=== PATIENT | male | born 1945 | race Caucasian/White ===

== ENCOUNTER 2018-01-02 09:22 | Outpatient (CLI) | payer MEDICARE, BC, OTHER ==
[2018-01-04] MEDS ORDERED: ALBUTEROL NEB 2.5 MG/3 ML INH PRN (16:18)
== END 2018-01-02 09:23 | disposition home or self-care (01) ==
LOC: RT 09:22
PROVIDERS: ATTEND Family Medicine
DX: J44.9 Chronic obstructive pulmonary disease, unspecified (principal)
CPT/HCPCS: 94060; 94729

== ENCOUNTER 2018-10-04 11:22 | Outpatient (CLI) | payer MEDICARE, BC, OTHER ==
[2018-10-04] MEDS ORDERED: BUFFERED LIDOCAINE 10 ML SYRINGE ONE (12:02)
[2018-10-04] MEDS ORDERED: IOTHALAMATE MEGLUMINE 50 ML VIAL ONE (12:19)
[2018-10-04] MEDS ORDERED: BUFFERED LIDOCAINE 10 ML SYRINGE IU ONE (12:44)
[2018-10-04] MEDS ORDERED: BUPIVACAINE 0.5% PF 10 ML VIAL IM ONE (12:44)
[2018-10-04] MEDS ORDERED: IOTHALAMATE MEGLUMINE 50 ML VIAL IVP ONE (12:44)
[2018-10-04] MEDS ORDERED: methylPREDNISolone ACETATE 80 MG/ML VIAL IU ONE (12:44)
--- NOTE | 2018-10-24 13:00 | XRAY Report ---
Reason: DEGENERATIVE JOINT DISEASE OF LEFT SHOULDER Procedure Date: 10/04/2018 Accession Number: [id number] / [id number] Procedure: FL - Inj/Aspiration Major Joint CPT Code: FULL RESULT: EXAM: LEFT SHOULDER FLUOROSCOPIC INJECTION FOR PAIN EXAM DATE: 10/04/2018 12:37 PM. REFERRING PROVIDER: CLINICAL HISTORY: Degenerative joint disease of left shoulder. COMPARISON: None. TECHNIQUE: The risks, benefits and alternatives of this examination were discussed in detail with the patient. Risks of bleeding, infection, and increasing discomfort in the left shoulder were included in the discussion. The patient appeared to understand, and signed, dated, and timed an informed consent document. The skin was prepped with chlorhexidine gluconate and draped in the usual sterile manner, and 4 mL of 1% buffered lidocaine was used for local analgesia. Under fluoroscopic control, a 22-gauge needle was placed into the left shoulder joint capsule. After achieving low resistance to the injection of lidocaine, 4 mL of Conray 60 radiographic contrast was injected and a fluoroscopic spot image was captured to document intra-articular location. Then a combination of 10 mL of bupivacaine and 80 mg of Depo-Medrol was injected without difficulty. The needle was removed, and the patient was released. The patient was instructed in the potential signs and symptoms for infection or septic arthritis. The patient was asked to call the referring physician or go to the emergency room if these signs and symptoms should appear. Fluoroscopy Time: 45 seconds. Number of Images: 1 IMPRESSION: Successful injection of left shoulder for pain relief as noted above. RADIA
== END 2018-10-04 11:23 | disposition home or self-care (01) ==
LOC: DI 11:22
PROVIDERS: ATTEND Orthopaedic Surgery Sports Medicine
DX: M19.012 Primary osteoarthritis, left shoulder (principal)
CPT/HCPCS: 20610; Q9961

== ENCOUNTER 2018-10-18 13:21 | Outpatient (CLI) | payer MEDICARE, BC, OTHER ==
[2018-10-18] MEDS ORDERED: IOTHALAMATE MEGLUMINE 50 ML VIAL ONE (13:30)
[2018-10-18] MEDS ORDERED: BUFFERED LIDOCAINE 10 ML SYRINGE ONE (13:30)
[2018-10-18] MEDS ORDERED: TRIAMCINOLONE 40 MG/ML VIAL IM ONE (14:40)
[2018-10-18] MEDS ORDERED: ROPIVACAINE 0.5% PF 20 ML AMPULE EPI ONE (14:40)
[2018-10-18] MEDS ORDERED: IOTHALAMATE MEGLUMINE 50 ML VIAL IVP ONE (14:40)
[2018-10-18] MEDS ORDERED: BUFFERED LIDOCAINE 10 ML SYRINGE IU ONE (14:52)
--- NOTE | 2018-10-28 08:33 | XRAY Report ---
Reason: DJD OF RIGHT SHOULDER Procedure Date: 10/18/2018 Accession Number: [id number] / [id number] Procedure: FL - Inj/Aspiration Major Joint CPT Code: FULL RESULT: EXAM: RIGHT SHOULDER STEROID INJECTION WITH FLUOROSCOPIC GUIDANCE EXAM DATE: 10/18/2018 01:40 PM. CLINICAL HISTORY: DJD of right shoulder. Shoulder pain. COMPARISON: GENERAL 10/04/2018 10:43 AM. TECHNIQUE: The risks, benefits, and alternatives of the procedure were discussed with the patient. All questions were answered. Written and verbal consent were obtained. The glenohumeral joint was marked under fluoroscopy and prepped and draped in a sterile manner. Local anesthesia was performed with 1% lidocaine. A 22-gauge needle was then inserted into the glenohumeral joint. 5 mL of a solution containing 0.5% ropivacaine, 10 mg Kenalog, and iodinated contrast was then injected. The needle was removed without immediate complication. Other: None. Fluoroscopy Time: 5 seconds. Number of Images: 4. FINDINGS: Bones and joints: No fracture or subluxation. Injection: Fluoroscopic images demonstrate needle placement and contrast in the glenohumeral joint. No contrast extravasation outside of the glenohumeral joint. IMPRESSION: Successful fluoroscopically guided steroid injection of the shoulder. RADIA
== END 2018-10-18 13:22 | disposition home or self-care (01) ==
LOC: DI 13:21
PROVIDERS: ATTEND Orthopaedic Surgery Sports Medicine
DX: M19.011 Primary osteoarthritis, right shoulder (principal)
CPT/HCPCS: 20610; Q9961

== ENCOUNTER 2018-11-11 08:00 | Outpatient (CLI) | payer MEDICARE, BC, OTHER ==
[2018-11-11 18:50] LABS: BASOPHILS # (AUTO) 0.1 10^3/uL (0.0-0.1); BASOPHILS % (AUTO) 0.9 %; EOSINOPHILS # (AUTO) 0.1 10^3/uL (0.0-0.7); EOSINOPHILS % (AUTO) 1.2 %; HGB - HEMOGLOBIN 14.1 g/dL (14.0-18.0); LYMPHOCYTES # (AUTO) 1.4 10^3/uL (1.5-3.5); LYMPHOCYTES % (AUTO) 23.7 %; MEAN CORPUSCULAR HEMOGLOBIN 30.3 pg (27.0-31.0); MEAN CORPUSCULAR HGB CONC 33.3 g/dL (32.0-36.0); MEAN CORPUSCULAR VOLUME 91.1 fL (80.0-94.0); MEAN PLATELET VOLUME 8.8 fL (7.4-11.4); MONOCYTES # (AUTO) 0.6 10^3/uL (0.0-1.0); MONOCYTES % (AUTO) 9.6 %; NEUTROPHILS # (AUTO) 3.8 10^3/uL (1.5-6.6); NEUTROPHILS % (AUTO) 64.6 %; PLT - PLATELET COUNT 256 10^3/uL (130-450); RED BLOOD COUNT 4.64 10^6/uL (4.70-6.10); RED CELL DISTRIBUTION WIDTH 13.9 % (12.0-15.0); WHITE BLOOD COUNT 5.9 x10^3/uL (4.8-10.8)
[2018-11-11 19:03] LABS: ALBUMIN 3.9 g/dL (3.2-5.5); ALBUMIN/GLOBULIN RATIO 1.4 (1.0-2.2); ALKALINE PHOSPHATASE 100 IU/L (42-121); ALT ALANINE AMINOTRANSFERASE 24 IU/L (10-60); AST ASPARTATE AMINOTRANSFERASE 26 IU/L (10-42); BILIRUBIN,TOTAL 0.7 mg/dL (0.2-1.0); BUN - BLOOD UREA NITROGEN 13 mg/dL (6-20); CALCIUM 9.1 mg/dL (8.5-10.3); CARBON DIOXIDE - CO2 27 mmol/L (21-32); CHLORIDE 105 mmol/L (101-111); CHOL/HDL RATIO 4.5 (<5.0); CHOLESTEROL 206 mg/dL; CREATININE 0.9 mg/dL (0.6-1.2); GFR - MDRD 83 (>89); GLUCOSE 113 mg/dL (70-100); HDL CHOLESTEROL 46 mg/dL; LDL CHOLESTEROL,CALCULATED 138 mg/dL; SODIUM 138 mmol/L (135-145); TOTAL PROTEIN 6.7 g/dL (6.7-8.2); VLDL CHOLESTEROL 22 mg/dL
[2018-11-11 19:15] LABS: HB2 TOTAL 15.5 g/dL; HEMOGLOBIN A1C 0.59 g/dL; HEMOGLOBIN A1C % 5.6 % (4.6-6.2)
== END 2018-11-11 23:59 | disposition home or self-care (01) ==
LOC: LAB.WCP 08:00
PROVIDERS: ATTEND Family Medicine
DX: R73.01 Impaired fasting glucose (principal); E78.5 Hyperlipidemia, unspecified; Z12.5 Encounter for screening for malignant neoplasm of prostate; R03.0 Elevated blood-pressure reading, without diagnosis of hypertension
CPT/HCPCS: 36415; 80053; 80061; 83036; 85025; G0103; 83721; 84153

== ENCOUNTER 2018-11-14 16:13 | Outpatient (CLI) | payer MEDICARE, BC, OTHER ==
--- NOTE | 2018-11-15 10:03 | Ultrasound Report ---
Reason: NICOTINE ADDICTION,IN REMISSION Procedure Date: 11/14/2018 Accession Number: [id number] / [id number] Procedure: US - Aorta Screening CPT Code: FULL RESULT: EXAM: AORTIC DOPPLER ULTRASOUND EXAM DATE: 11/14/2018 04:24 PM. CLINICAL HISTORY: Nicotine addiction, in remissioN. COMPARISON: None. TECHNIQUE: Real-time sonographic imaging of retroperitoneal vascular structures, including color-flow, Doppler flow and spectral analysis was performed by the practice performance manager. Multiple printing supplies sales representative static images were saved for review. FINDINGS: Aorta: The abdominal aorta was adequately visualized. No evidence for abdominal aortic aneurysm. Atheromatous plaques are noted. Aorta: Proxima: Sagittal AP 2.9 cm. Mid: Transverse 2.4 x 2.3 cm. Distal: Transverse 2.1 x 2.0 cm. Caliber: WNL: Yes. Plaque visualized: Yes. Iliacs: Right Iliac: Transverse 1.3 x 1.2 cm. Left Iliac: Transverse 1.3 x 1.2 cm. Iliac Vessels: The visualized proximal common iliac arteries are normal in caliber. Ectatic right iliac artery. Other: None. IMPRESSION: No abdominal aortic aneurysm. RADIA
== END 2018-11-14 16:14 | disposition home or self-care (01) ==
LOC: DI 16:13
PROVIDERS: ATTEND Family Medicine
DX: F17.201 Nicotine dependence, unspecified, in remission (principal); I70.0 Atherosclerosis of aorta
CPT/HCPCS: 76706

== ENCOUNTER 2019-02-25 13:22 | Outpatient (CLI) | payer MEDICARE, BC, OTHER ==
--- NOTE | 2019-02-25 14:29 | Ultrasound Report ---
Reason: CALF PAIN, LEFT Procedure Date: 02/25/2019 Accession Number: [id number] / [id number] Procedure: US - Duplex Ext Veins Left CPT Code: FULL RESULT: EXAM: LEFT LOWER EXTREMITY VENOUS ULTRASOUND EXAM DATE: 02/25/2019 02:22 PM. CLINICAL HISTORY: CALF PAIN, LEFT. COMPARISON: None. TECHNIQUE: Real-time sonographic vascular imaging was performed by the laundry assistant through the lower extremity utilizing both color-flow and Doppler spectral analysis. Multiple title insurance sales representative static images were saved for review. FINDINGS: Common Femoral Vein (CFV): Normal. CFV-GSV Junction: Normal. Profunda Femoral Vein (PFV): Normal. Femoral Vein (FV) Prox: Normal. Femoral Vein (FV) Mid: Normal. Femoral Vein (FV) Dist: Normal. Popliteal Vein: Normal. Posterior Tibial Veins: Normal. Peroneal Veins: Normal. Contralateral Side CFV: Normal. Other: None. IMPRESSION: No evidence for deep venous thrombosis. RADIA
== END 2019-02-25 13:23 | disposition home or self-care (01) ==
LOC: DI 13:22
PROVIDERS: ATTEND Orthopaedic Surgery Sports Medicine
DX: M79.662 Pain in left lower leg (principal)

== ENCOUNTER 2019-03-06 12:51 | Outpatient (CLI) | payer MEDICARE, BC, OTHER ==
[2019-03-06] MEDS ORDERED: BUFFERED LIDOCAINE 10 ML SYRINGE ONE (13:03)
[2019-03-06] MEDS ORDERED: IOTHALAMATE MEGLUMINE 50 ML VIAL ONE (13:04)
[2019-03-06] MEDS ORDERED: BUFFERED LIDOCAINE 10 ML SYRINGE IU ONE (14:16)
[2019-03-06] MEDS ORDERED: IOTHALAMATE MEGLUMINE 50 ML VIAL IVP ONE (14:16)
[2019-03-06] MEDS ORDERED: TRIAMCINOLONE 40 MG/ML VIAL IM ONE (14:16)
[2019-03-06] MEDS ORDERED: ROPIVACAINE 0.5% PF 20 ML VIAL SUBQ SCH (15:00)
--- NOTE | 2019-03-07 13:12 | XRAY Report ---
Reason: DEGENERATIVE JOINT DISEASE OF LT SHOULDER Procedure Date: 03/06/2019 Accession Number: [id number] / [id number] Procedure: FL - Inj/Aspiration Major Joint CPT Code: FULL RESULT: EXAM: LEFT SHOULDER STEROID INJECTION WITH FLUOROSCOPIC GUIDANCE EXAM DATE: 03/06/2019 02:05 PM. CLINICAL HISTORY: DEGENERATIVE JOINT DISEASE OF LEFT SHOULDER. COMPARISON: INJ/ASPIRATION MAJOR JOINT 10/18/2018 2:16 PM. TECHNIQUE: The risks, benefits, and alternatives of the procedure were discussed with the patient. All questions were answered. Written and verbal consent were obtained. The glenohumeral joint was marked under fluoroscopy and prepped and draped in a sterile manner. Local anesthesia was performed with 1% lidocaine. A 22-gauge needle was then inserted into the glenohumeral joint. 5 mL of a solution of 4 mL 0.5% ropivacaine and 1 mL Kenalog 40 mg was then injected. The needle was removed without immediate complication. Other: None. Fluoroscopy Time: 0.2 minutes. Number of Images: 13. FINDINGS: Bones and joints: No fracture or subluxation. Injection: Fluoroscopic images demonstrate needle placement and contrast in the glenohumeral joint. No contrast extravasation outside of the glenohumeral joint. IMPRESSION: Successful fluoroscopically guided steroid injection of the shoulder. RADIA
== END 2019-03-06 12:52 | disposition home or self-care (01) ==
LOC: DI 12:51
PROVIDERS: ATTEND Orthopaedic Surgery Sports Medicine
DX: M19.012 Primary osteoarthritis, left shoulder (principal)
CPT/HCPCS: 20610; Q9961

== ENCOUNTER 2019-07-10 15:00 | Outpatient (CLI) | payer MEDICARE, BC, OTHER ==
--- NOTE | 2019-07-11 11:17 | XRAY Report ---
Reason: COPD, COUGH Procedure Date: 07/10/2019 Accession Number: [id number] / [id number] Procedure: WCP - Chest 2 View X-Ray CPT Code: 06695 Final Report FULL RESULT: EXAM: CHEST RADIOGRAPHY EXAM DATE: 07/10/2019 03:00 PM HISTORY: COPD, COUGH COMPARISON: CHEST 2 VIEW PA/LAT 05/18/2016 3:48 PM TECHNIQUE: Two Views FINDINGS: Lungs/Pleura: No consolidation, edema or pleural effusion. Mildly hyperexpanded suggesting pulmonary emphysema. Cardiomediastinal silhouette: Normal heart size. There is deviation of the trachea toward the right side just below the thoracic inlet level. This is new. Follow-up with chest CT is recommended to better assess for solid tumor lesion. Other: Diffuse moderate spondylosis noted in the thoracic spine. Bilateral degenerative arthritis seen at the shoulders. IMPRESSION: No soft tissue prominence and tracheal deviation at the upper mediastinum concerning for soft tissue mass lesion. Follow-up with chest CT is recommended. Continued suggestion of pulmonary emphysema. No focal pulmonary abnormality. RADIA
== END 2019-07-10 23:59 | disposition home or self-care (01) ==
LOC: DI.WCP 15:00
PROVIDERS: ATTEND Family Medicine
DX: J44.9 Chronic obstructive pulmonary disease, unspecified (principal)
CPT/HCPCS: 71046

== ENCOUNTER 2019-07-24 13:19 | Outpatient (CLI) | payer MEDICARE, BC, OTHER ==
--- NOTE | 2019-07-24 15:48 | CT Report ---
Reason: ABN CHEST XRAY Procedure Date: 07/24/2019 Accession Number: [id number] / [id number] Procedure: CT - CHEST WO CPT Code: Final Report FULL RESULT: EXAM: CT CHEST EXAM DATE: 07/24/2019 01:53 PM. CLINICAL HISTORY: Abnormal chest x-ray. COMPARISONS: CHEST W/O 07/14/2014 8:32 AM CHEST 2 VIEW 07/10/2019 2:33 PM. TECHNIQUE: Routine helical CT imaging was performed through the chest. IV contrast: None. Reconstructions: Coronal and sagittal. In accordance with CT protocol optimization, one or more of the following dose reduction techniques were utilized for this exam: automated exposure control, adjustment of mA and/or KV based on patient size, or use of iterative reconstructive technique. FINDINGS: Lungs/Pleura: There has been interval progression in previously subtle right middle and upper lobe and lingula bronchiectasis with surrounding central peribronchovascular groundglass and interstitial thickening with scant patchy consolidation in the right middle lobe suggestive of ongoing active airspace disease, likely with a chronic component. No significant corresponding active airspace disease is seen in the lingula. Remaining lung is essentially normal aside from subsegmental atelectasis at both lung bases and a 3 mm nodule in the lingula as seen on image 201 series 4. There is no pleural effusion or pneumothorax. Mediastinum: Moderate to severe calcifications of the left coronary system. No pericardial effusion. No mediastinal lymphadenopathy by size criteria. Mild to moderate calcifications of the aortic arch. Bones: Unremarkable. Visualized Abdomen: Left renal cyst. Other: None. IMPRESSION: Chronic changes including bronchiectasis and right middle and upper lobe as well as to a lesser degree in the lingula with apparent acute airspace disease in the right middle lobe and lingula. RADIA
== END 2019-07-24 13:20 | disposition home or self-care (01) ==
LOC: DI 13:19
PROVIDERS: ATTEND Family Medicine
DX: J47.9 Bronchiectasis, uncomplicated (principal); J98.11 Atelectasis; R91.8 Other nonspecific abnormal finding of lung field
CPT/HCPCS: 71250

== ENCOUNTER 2019-11-19 09:32 | Outpatient (CLI) | payer MEDICARE, BC, OTHER ==
[2019-11-19 13:43] LABS: BASOPHILS % (AUTO) 0.7 %; EOSINOPHILS # (AUTO) 0.1 10^3/uL (0.0-0.7); EOSINOPHILS % (AUTO) 1.7 %; HGB - HEMOGLOBIN 14.4 g/dL (14.0-18.0); LYMPHOCYTES # (AUTO) 1.6 10^3/uL (1.5-3.5); LYMPHOCYTES % (AUTO) 27.2 %; MEAN CORPUSCULAR HEMOGLOBIN 30.1 pg (27.0-31.0); MEAN CORPUSCULAR VOLUME 91.4 fL (80.0-94.0); MONOCYTES # (AUTO) 0.5 10^3/uL (0.0-1.0); MONOCYTES % (AUTO) 9.2 %; NEUTROPHILS # (AUTO) 3.5 10^3/uL (1.5-6.6); NEUTROPHILS % (AUTO) 60.9 %; PLT - PLATELET COUNT 232 10^3/uL (130-450); RED BLOOD COUNT 4.78 10^6/uL (4.70-6.10); RED CELL DISTRIBUTION WIDTH 12.9 % (12.0-15.0); WHITE BLOOD COUNT 5.7 x10^3/uL (4.8-10.8)
[2019-11-19 14:07] LABS: ALBUMIN 3.9 g/dL (3.2-5.5); ALBUMIN/GLOBULIN RATIO 1.3 (1.0-2.2); ALKALINE PHOSPHATASE 94 IU/L (42-121); ALT ALANINE AMINOTRANSFERASE 16 IU/L (10-60); AST ASPARTATE AMINOTRANSFERASE 19 IU/L (10-42); BUN - BLOOD UREA NITROGEN 17 mg/dL (6-20); CALCIUM 8.8 mg/dL (8.5-10.3); CARBON DIOXIDE - CO2 28 mmol/L (21-32); CHLORIDE 106 mmol/L (101-111); CHOL/HDL RATIO 4.9 (<5.0); CHOLESTEROL 201 mg/dL; GLUCOSE 107 mg/dL (70-100); HDL CHOLESTEROL 41 mg/dL; LDL CHOLESTEROL,CALCULATED 136 mg/dL; LDL/HDL RATIO 3.3 (<3.6); SODIUM 138 mmol/L (135-145); TOTAL PROTEIN 6.8 g/dL (6.7-8.2); VLDL CHOLESTEROL 24 mg/dL
[2019-11-19 14:25] LABS: HB2 TOTAL 14.7 g/dL; HEMOGLOBIN A1C 0.55 g/dL; HEMOGLOBIN A1C % 5.6 % (4.6-6.2)
== END 2019-11-19 23:59 | disposition home or self-care (01) ==
LOC: LAB.WCP 09:32
PROVIDERS: ATTEND Family Medicine
DX: R73.9 Hyperglycemia, unspecified (principal); E78.5 Hyperlipidemia, unspecified; R03.0 Elevated blood-pressure reading, without diagnosis of hypertension
CPT/HCPCS: 36415; 80053; 80061; 83036; 83721; 84443; 85025

== ENCOUNTER 2019-11-26 13:59 | Outpatient (CLI) | payer MEDICARE, BC, OTHER | END 2019-11-26 23:59 | disposition home or self-care (01) | LOC: LAB.WCP 13:59 | PROVIDERS: ATTEND Family Medicine | DX: R97.20 Elevated prostate specific antigen [PSA] (principal) | CPT/HCPCS: 36415; 84153 ==

== ENCOUNTER 2020-01-29 10:05 | Outpatient (CLI) | payer MEDICARE, BC, OTHER ==
[~2020-01-29 10:05] MED LIST: BUFFERED LIDOCAINE 10 ML SYRINGE ONE
[2020-01-29] MEDS ORDERED: BUFFERED LIDOCAINE 10 ML SYRINGE IU ONE (12:31)
[2020-01-29] MEDS: TRIAMCINOLONE 40 MG/ML VIAL IM ONE ×2 (12:32→12:35)
[2020-01-29] MEDS ORDERED: iohexoL-240 10 ML VIAL IVP ONE (12:36)
[2020-01-29] MEDS ORDERED: BUPIVACAINE 0.5% PF 10 ML VIAL IM ONE (12:37)
--- NOTE | 2020-01-29 12:38 | XRAY Report ---
Reason: DJD LEFT SHOULDER Procedure Date: 01/29/2020 Accession Number: [id number] / [id number] Procedure: FL - Inj/Aspiration Major Joint CPT Code: Final Report FULL RESULT: PROCEDURE: Inj/Aspiration Major Joint INDICATIONS: DJD left SHOULDER CONTRAST: CONTRAST: OMNIPAQUE 240 FLUOROSCOPY TIME: 10 seconds and 2 images TECHNIQUE: The indications, alternatives, benefits, risks, and complications of the procedure were explained to the patient. Written informed consent was obtained and placed in the chart. The shoulder was examined fluoroscopically and a site for needle placement chosen for entry into the glenohumeral joint from an anterior approach. The skin was prepped and draped in the usual fashion, and 1% lidocaine infiltrated from skin down to joint capsule. A spinal needle was inserted into the glenohumeral joint, and a small amount of iodinated contrast media injected to confirm intra-articular placement of the needle tip. Subsequently, a mixture of 2 cc 1% lidocaine, 2 cc 0.5% Marcaine, and 1 cc 40 mg/mL Kenalog was instilled into the joint space. The needle was removed and a dressing was applied. The patient was given postprocedural instructions and sent to the MR suite for MR imaging. FINDINGS: A single fluoroscopic spot image demonstrates intra-articular location of injected iodinated contrast. Severe osteoarthritic changes of the shoulder also noted. Chronic left rotator cuff tear. IMPRESSION: Successful fluoroscopically guided administration steroid and local anesthetic into the shoulder. Reviewed by: Jordi Miramontes MD on 01/29/2020 12:37 PM PDT Approved by: Jordi Miramontes MD on 01/29/2020 12:37 PM PDT Station ID: [id number]
--- NOTE | 2020-01-29 12:38 | XRAY Report ---
Reason: DJD RIGHT SHOULDER Procedure Date: 01/29/2020 Accession Number: [id number] / [id number] Procedure: FL - Inj/Aspiration Major Joint CPT Code: Final Report FULL RESULT: PROCEDURE: Inj/Aspiration Major Joint INDICATIONS: DJD RIGHT SHOULDER CONTRAST: CONTRAST: OMNIPAQUE 240 FLUOROSCOPY TIME: 10 seconds and 1 image TECHNIQUE: The indications, alternatives, benefits, risks, and complications of the procedure were explained to the patient. Written informed consent was obtained and placed in the chart. The shoulder was examined fluoroscopically and a site for needle placement chosen for entry into the glenohumeral joint from an anterior approach. The skin was prepped and draped in the usual fashion, and 1% lidocaine infiltrated from skin down to joint capsule. A spinal needle was inserted into the glenohumeral joint, and a small amount of iodinated contrast media injected to confirm intra-articular placement of the needle tip. Subsequently, a mixture of 2 cc 1% lidocaine, 2 cc 0.5% Marcaine, and 1 cc 40 mg/mL Kenalog was instilled into the joint space. The needle was removed and a dressing was applied. The patient was given postprocedural instructions and sent to the MR suite for MR imaging. FINDINGS: A single fluoroscopic spot image demonstrates intra-articular location of injected iodinated contrast. Severe osteoarthritic changes of the shoulder also noted. IMPRESSION: Successful fluoroscopically guided administration steroid and local anesthetic into the shoulder. Reviewed by: Jordi Miramontes MD on 01/29/2020 12:36 PM PDT Approved by: Jordi Miramontes MD on 01/29/2020 12:36 PM PDT Station ID: [id number]
== END 2020-01-29 10:06 | disposition home or self-care (01) ==
LOC: DI 10:05
PROVIDERS: ATTEND Orthopaedic Surgery
DX: M19.011 Primary osteoarthritis, right shoulder (principal); M19.012 Primary osteoarthritis, left shoulder
CPT/HCPCS: 20610; 77002

== ENCOUNTER 2020-04-13 11:01 | Outpatient (CLI) | payer MEDICARE, BC, OTHER ==
--- NOTE | 2020-04-13 13:55 | XRAY Report ---
PROCEDURE: Knee 4 View BILAT INDICATIONS: LUMBAR SPONDYLOSIS,DJD LT SHOULDER,KT KNEE PAIN TECHNIQUE: 4 views of the bilateral knee(s) were acquired. COMPARISON: 10/07/2018 FINDINGS: Bones: Minimal joint space narrowing of the medial compartment of the right knee. Right knee is othe rwise intact without acute fracture or malalignment. Interval progression of patellofemoral and later al femorotibial compartment degenerative change of the left knee with near complete joint space loss of the lateral femorotibial compartment and associated subchondral degenerative cystic change. Promin ent marginal osteophyte formation. Stable irregular cortex of the inferior pole of the left patella. Corticated ossification of the left anterior tibial tubercle also appears stable. No acute fractures or dislocations. No suspicious bony lesions. Soft tissues: No joint effusion. No suspicious soft tissue calcifications. IMPRESSION: 1. Progression of left knee tricompartmental osteoarthrosis with now severe lateral femorotibial comp artment degenerative change as noted by near-complete joint space loss and prominent marginal osteoph yte formation. Subchondral cystic change of the left lateral femoral condyle. 2. Mild right knee osteoarthrosis, stable. Reviewed by: Andres Villegas MD on 04/13/2020 1:53 PM PDT Approved by: Andres Villegas MD on 04/13/2020 1:53 PM PDT Station ID: [id number]
--- NOTE | 2020-04-13 16:00 | XRAY Report ---
PROCEDURE: Shoulder 3 View LT INDICATIONS: LUMBAR SPONDYLOSIS,DJD LT SHOULDER,KT KNEE PAIN TECHNIQUE: 3 views of the shoulder were acquired. COMPARISON: None. FINDINGS: Bones: No acute fractures or dislocations. Severe degenerative changes of the left acromioclavicula r joint and glenohumeral joint. There is significant narrowing of the subacromial space with near com plete loss of the joint space between the inferior margin of the distal acromion and the humeral head . There is also cephalad migration of the left humeral head relative to the glenoid. No suspicious meryl ny lesions. Visualized ribs appear intact. Soft tissues: No suspicious soft tissue calcifications. IMPRESSION: 1. Severe osteoarthrosis of the left acromioclavicular and glenohumeral joints. 2. Findings consistent with sequela of chronic rotator cuff tear with cephalad migration of the humer al head and near complete loss of the subacromial joint space. Reviewed by: Andres Villegas MD on 04/13/2020 3:59 PM PDT Approved by: Andres Villegas MD on 04/13/2020 3:59 PM PDT Station ID: [id number]
--- NOTE | 2020-04-13 16:32 | XRAY Report ---
PROCEDURE: Lumbar Spine Complete INDICATIONS: LUMBAR SPONDYLOSIS,DJD LT SHOULDER,KT KNEE PAIN TECHNIQUE: 4 views of the lumbar spine were acquired. COMPARISON: None. FINDINGS: Bones: 5 [id number] vertebrae are present. There is mild dextrocurvature of the mid lumbar spi ne with reciprocal levocurvature of the lumbosacral junction. Moderate-severe multilevel lumbar spond ylitic changes most severe at L2-3 L4-5 and L5-S1. There is moderate multilevel facet arthropathy. No evidence for pars defects. No acute vertebral body compression fractures. No suspicious bony lesion s. Soft tissues: Overlying bowel gas pattern is normal. No suspicious soft tissue calcifications. Mode rate atherosclerotic calcifications noted in the abdominal aorta. IMPRESSION: 1. Lumbar spine without acute osseous abnormalities. 2. Moderate-severe multilevel lumbar spondylosis. Reviewed by: Andres Villegas MD on 04/13/2020 4:31 PM PDT Approved by: Andres Villegas MD on 04/13/2020 4:31 PM PDT Station ID: [id number]
== END 2020-04-13 11:02 | disposition home or self-care (01) ==
LOC: DI 11:01
PROVIDERS: ATTEND Orthopaedic Surgery
DX: M17.0 Bilateral primary osteoarthritis of knee (principal); M47.816 Spondylosis without myelopathy or radiculopathy, lumbar region; M19.012 Primary osteoarthritis, left shoulder
CPT/HCPCS: 72110

== ENCOUNTER 2020-05-08 12:27 | Emergency (ER) | payer MEDICARE, BC, OTHER ==
--- NOTE | 2020-05-08 12:49 | ED Physician Documentation ---
PD HPI BACK PAIN - Stated complaint Stated Complaint: BACK PX - Chief complaint Chief Complaint: Back Pain - History obtained from History obtained from: Patient - History of Present Illness Timing - onset: How many months ago (has had significant increase in low back pain over the past month. Worse the past week. With radiation of pain to right posterior thigh. Pain mainly right SI area. He had had left knee problem recently and so had gait stressing right hip/back more. Rx with Tramadol without much improvement.) Timing - details: Gradual onset, Waxing and waning, Other (Today he also had 3-5 seconds of marked pain/spasm going up from low back to upper back and then improved. He did not have any chest nor abd pain, lightheadedness, leg weakness.) Location: Lower, Right Quality: Pain, Aching Associated symptoms: No: Fever, Weakness, Numbness, Incontinent of urine Worsened by: Lifting, Twisting, Palpation (right lower lumbar and SI area.) Contributing factors: Trauma (he says he had slipped while doing some roof work and landed to right hip/low back couple of weeks ago. Did not hurt as much then, but has had increased pain over baseline the past week.) Similar symptoms before: Diagnosis (low back arthritis and pains.) Review of Systems Constitutional: denies: Fever, Chills Nose: denies: Rhinorrhea / runny nose, Congestion Throat: denies: Sore throat Respiratory: denies: Cough GI: denies: Nausea, Vomiting, Diarrhea Skin: denies: Rash, Lesions Neurologic: denies: Focal weakness, Numbness PD PAST MEDICAL HISTORY - Past Medical History Respiratory: COPD Musculoskeletal: Chronic back pain - Past Surgical History Past Surgical History: Yes - Present Medications Home Medications: Ambulatory Orders Medication Instructions Recorded Confirmed Albuterol [Proventil Hfa] 1 puffs INH ONCE 04/02/13 02/22/20 Naproxen Sodium 2 mg PO DAILY 04/02/13 02/22/20 Tamsulosin [Flomax] 0.4 mg PO ONCE 04/02/13 02/22/20 Tiotropium [Spiriva] 1 puffs INH DAILY 04/02/13 02/22/20 Finasteride 5 mg PO DAILY 02/22/20 02/22/20 Fluticasone Propion/Salmeterol 1 each NEB BID 02/22/20 02/22/20 [Wixela 100-50 Inhub] Hydrocodone/Acetaminophen 1 - 2 tab PO Q6H PRN #14 tablet 02/22/20 [Hydrocodone-Acetamin 5-325 mg] Omeprazole 20 mg PO DAILY 02/22/20 02/22/20 Oxycodone HCl 5 mg PO Q8H PRN #20 tablet 05/08/20 Tizanidine HCl 4 mg PO TID PRN #25 capsule 05/08/20 dexAMETHasone [Decadron] 4 mg PO DAILY #5 tablet 05/08/20 - Allergies Allergies/Adverse Reactions: Allergies Allergy/AdvReac Type Severity Reaction Status Date / Time No Known Drug Allergies Allergy Verified 02/22/20 14:42 - Social History Does the pt smoke?: No Smoking Status: Never smoker Does the pt drink ETOH?: Yes Does the pt have substance abuse?: No - Immunizations Immunizations are current?: Yes PD ED PE NORMAL - Vitals Vital signs reviewed: Yes - General General: Alert and oriented X 3, Well developed/nourished, Other (appears in pain and guarding ROM of the right low back. pain with flex/ext and also twisting to right. ) - Abdomen Abdomen: Soft, Non tender - Back Back: No spinal TTP (he had tenderness right lower lumbar muscles and also some in right SI without focal tenderness per se. ) - Derm Derm: Normal color, Warm and dry - Extremities Extremities: No: No tenderness to palpate, Normal ROM s pain - Neuro Neuro: Alert and oriented X 3, No motor deficit, No sensory deficit, Normal speech, Other (has knee braces on so hard to test patellar reflexes. ) Results - Vitals Vitals: Vital Signs - 24 hr 05/08/20 05/08/20 12:32 16:33 Temperature 37.3 C 37.0 C Heart Rate 91 61 Respiratory 20 18 Rate Blood Pressure 156/79 H 139/85 H O2 Saturation 99 95 Oxygen O2 Source Room air - Rads (name of study) lumbar and pelvic CT Radiology: Prelim report reviewed (has chronic low back pain but also had mild fall couple weeks ago, with worse pain the past week. Can get CT to ensure not new fractures, bone lesions.), Final report received (no fractures. Arthritic changes noted. ), See rad report PD MEDICAL DECISION MAKING - ED course Complexity details: reviewed results, re-evaluated patient (pain improved reasonably well after meds in ER. Extended ER time due to concurrent trauma in ER leading to delay getting CT scan. ), considered differential, d/w patient Departure - Departure Disposition: 01 Home, Self Care Clinical Impression: Sacroiliac pain Low back pain Qualifiers: Chronicity: acute Back pain laterality: right Sciatica presence: with sciatica Sciatica laterality: sciatica of right side Qualified Code(s): M54.41 - Lumbago with sciatica, right side Condition: Stable Record reviewed to determine appropriate education?: Yes Instructions: ED Sacroiliitis, ED Sciatica Follow-Up: Amrik Hope DO [Primary Care Provider] - Ramon Ferrer MD [Provider Admit Priv/Credential] - Prescriptions: dexAMETHasone [Decadron] 4 mg PO DAILY #5 tablet Oxycodone HCl 5 mg PO Q8H PRN #20 tablet PRN Reason: Pain Tizanidine HCl 4 mg PO TID PRN #25 capsule PRN Reason: Spasms Comments: The CT imaging showed arthritic changes without any obvious acute fractures or abnormality. We will treat this for inflammation of the sacroiliac joint and possibly some nerve impingement off of the lower spine. I presume you may have had some muscle spasm earlier today. Stop the tramadol for now. Use Decadron steroid anti-inflammatory daily for 5 more days. Add tizanidine muscle relaxant 3 times a day as needed for spasms and stiffness. To that add Tylenol 500 mg 4 times a day and oxycodone as needed for worse pain. Follow-up with your primary care and orthopedics if not improved well over the next several days. Discharge Date/Time: 05/08/20 16:39
[2020-05-08] MEDS ORDERED: DEXAMETHASONE 10 MG/ML VIAL PO STA (13:17)
[2020-05-08] MEDS ORDERED: KETOROLAC 30 MG/ML VIAL IM STA (13:17)
[2020-05-08] MEDS ORDERED: HYDROmorphone 2 MG/ML VIAL IM STA (13:17)
[2020-05-08] MEDS ORDERED: CHERRY SYRUP 10 ML UDC PO ONE (13:17)
--- NOTE | 2020-05-08 15:48 | CT Report ---
PROCEDURE: LUMBAR SPINE WO INDICATIONS: low back pain, fall TECHNIQUE: Noncontrast 3 mm thick sections acquired from the T12 level to the sacrum. Sagittal and coronal refo rmats were constructed. For radiation dose reduction, the following was used: automated exposure co ntrol, adjustment of mA and/or kV according to patient size. COMPARISON: Lumbar spine radiographs 04/13/2020.. FINDINGS: Image quality: Excellent. Bones: 5 lumbar type vertebral bodies. Mild scoliosis of the lower lumbar spine. No acute vertebral b manjit compression fractures. Severe lower lumbar spine DDD. No suspicious lytic or blastic bony lesions . Bilateral L4 pars defects. T12-L1: Normal in appearance. L1-L2: Moderate intervertebral disc space height loss. Minimal broad-based disc bulge. No signific ant neural foraminal stenosis. Mild central canal narrowing. L2-L3: Severe intervertebral disc space height loss. Minimal broad-based disc bulge. Severe endplate sclerosis. Mild significant neural foraminal stenosis. Moderate central canal narrowing. L3-L4: Severe intervertebral disc space height loss. Mild broad-based disc bulge. Severe endplate s clerosis. Moderate significant neural foraminal stenosis. Moderate central canal narrowing. L4-L5: Ankylosis. 0.9 cm anterolisthesis of L4 on L5. Severe endplate sclerosis. Moderate to severe significant neural foraminal stenosis. Moderate central canal narrowing. Bilateral L4 pars defect. L5-S1: 0.5 cm retrolisthesis of L5 on S1. Severe intervertebral disc space height loss. Mild broad- based disc bulge. Severe endplate sclerosis. Moderate significant neural foraminal stenosis. Moderate central canal narrowing. Soft tissues: No retroperitoneal masses or hematomas. Abdominal aorta ectasia. Left renal cyst parti ally visualized. Right kidney punctate nonobstructing calculus. Small hiatal hernia. IMPRESSION: 1. No compression fracture. 2. 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 This is most pronounced at L4-L5 and L5-S1. 3. Probable punctate nonobstructing right kidney stone. Reviewed by: Lupillo Paul MD on 05/08/2020 3:47 PM PDT Approved by: Lupillo Paul MD on 05/08/2020 3:47 PM PDT Station ID: [id number]
--- NOTE | 2020-05-08 16:24 | CT Report ---
PROCEDURE: PELVIS WO INDICATIONS: low back/ right SI area pain for a month TECHNIQUE: Noncontrast 3 mm axial sections acquired through the bony pelvis, with coronal and sagittal reformatt ing. For radiation dose reduction, the following was used: automated exposure control, adjustment of mA and/or kV according to patient size. COMPARISON: Correlation is made with the accompanying lumbar spine CT dated 05/08/2020. FINDINGS: Image quality: Excellent. Bones: Scrutiny is given to the sacroiliac joints. The sacroiliac joints demonstrate age-appropriate degenerative change, with a mild degree of fusion seen on the right side posteriorly. Degenerative changes of the lower lumbar spine are seen, with partial fusion of L4-L5 with grade 1 an terolisthesis and associated bilateral pars defects. There is also moderate to severe L5-S1 degenerat rudy change, with associated vacuum disc phenomenon and posteriorly directed endplate osteophytes. No fractures or dislocations can be seen. No suspicious lytic or blastic lesions are seen. Soft tissues: Sigmoid diverticulosis, without findings of active diverticulitis can be seen. Bilater al fat-containing inguinal hernias are seen, left more prominent than right. No enlarged lymph nodes are seen. Atherosclerotic calcification is seen. A normal appendix is incidentally noted. IMPRESSION: Mild partial fusion of the right sacroiliac joint. Focal lower lumbar spine degenerative changes. Incidental note is made of: Diverticulosis can be seen, without yoel findings of active diverticulitis. Normal appendix Reviewed by: Elfego Thakkar MD on 05/08/2020 3:23 PM [facility] Approved by: Elfego Thakkar MD on 05/08/2020 3:23 PM [facility] Station ID: [id number]
[2020-05-08 16:35] VITALS: BP 139/85
== END 2020-05-08 16:39 | disposition home or self-care (01) ==
LOC: ED 12:27
DX: M51.17 Intervertebral disc disorders with radiculopathy, lumbosacral region (principal); M47.27 Other spondylosis with radiculopathy, lumbosacral region; M46.1 Sacroiliitis, not elsewhere classified
CPT/HCPCS: 72131; 72192; 96372; 99284; A9270; J1170

== ENCOUNTER 2020-05-15 12:19 | Emergency (ER) | payer MEDICARE, BC, OTHER ==
[2020-05-15] MEDS ORDERED: CHERRY SYRUP 10 ML UDC PO ONE (12:55)
[2020-05-15] MEDS ORDERED: HYDROmorphone 1 MG/ML CARPUJECT IM STA (12:55)
[2020-05-15] MEDS ORDERED: KETOROLAC 60 MG/2 ML VIAL IM STA (12:55)
[2020-05-15] MEDS ORDERED: DEXAMETHASONE 10 MG/ML VIAL PO STA (12:55)
--- NOTE | 2020-05-15 13:03 | ED Physician Documentation ---
PD HPI BACK PAIN - Stated complaint Stated Complaint: BACK/LEG PX - Chief complaint Chief Complaint: Back Pain - History obtained from History obtained from: Patient - History of Present Illness Timing - onset: How many months ago (2) Timing - duration: Months (2) Timing - details: Gradual onset Pain level max: 10 Pain level now: 10 Location: Lower, Right, Left Quality: Pain, Spasm, Sharp, Similar to prior episodes Associated symptoms: No: Fever, Weakness, Numbness, Incontinent of urine, Unable to urinate, Hematuria, Incontinent of stool Improves with: Rest Worsened by: Movement Similar symptoms before: Diagnosis (DDD, DJD) Review of Systems Ten Systems: 10 systems reviewed and negative Constitutional: denies: Fever, Chills GI: denies: Vomiting : denies: Dysuria, Frequency, Hesitancy, Unable to Void, Incontinent Skin: denies: Rash Musculoskeletal: denies: Neck pain Neurologic: denies: Headache PD PAST MEDICAL HISTORY - Past Medical History Past Medical History: Yes Respiratory: COPD Musculoskeletal: Chronic back pain - Past Surgical History Past Surgical History: Yes - Present Medications Home Medications: Ambulatory Orders Medication Instructions Recorded Confirmed Albuterol [Proventil Hfa] 1 puffs INH ONCE 04/02/13 02/22/20 Naproxen Sodium 2 mg PO DAILY 04/02/13 02/22/20 Tamsulosin [Flomax] 0.4 mg PO ONCE 04/02/13 02/22/20 Tiotropium [Spiriva] 1 puffs INH DAILY 04/02/13 02/22/20 Finasteride 5 mg PO DAILY 02/22/20 02/22/20 Fluticasone Propion/Salmeterol 1 each NEB BID 02/22/20 02/22/20 [Wixela 100-50 Inhub] Hydrocodone/Acetaminophen 1 - 2 tab PO Q6H PRN #14 tablet 02/22/20 [Hydrocodone-Acetamin 5-325 mg] Omeprazole 20 mg PO DAILY 02/22/20 02/22/20 Oxycodone HCl 5 mg PO Q8H PRN #20 tablet 05/08/20 Tizanidine HCl 4 mg PO TID PRN #25 capsule 05/08/20 dexAMETHasone [Decadron] 4 mg PO DAILY #5 tablet 05/08/20 Meloxicam [Mobic] 7.5 mg PO BID PRN #20 tablet 05/15/20 Methylprednisolone [Medrol] 4 mg PO DAILY #1 tab.ds.pk 05/15/20 Oxycodone HCl 5 - 10 mg PO Q6H PRN #14 tablet 05/15/20 - Allergies Allergies/Adverse Reactions: Allergies Allergy/AdvReac Type Severity Reaction Status Date / Time No Known Drug Allergies Allergy Verified 05/15/20 12:30 - Social History Does the pt smoke?: No Smoking Status: Never smoker Does the pt drink ETOH?: Yes Does the pt have substance abuse?: No - Immunizations Immunizations are current?: Yes PD ED PE NORMAL - Vitals Vital signs reviewed: Yes - General General: Alert and oriented X 3, No acute distress - HEENT HEENT: Moist mucous membranes - Neck Neck: Supple, no meningeal sign - Cardiac Cardiac: RRR - Respiratory Respiratory: No respiratory distress, Clear bilaterally - Back Back: No spinal TTP, Other (no midline TTP, no step off or deformity. no pain with percussion. NVI. paraspinal spasm B low lumbar) - Derm Derm: Warm and dry - Extremities Extremities: Other (Normal bilateral lower extremity patellar and ankle jerk reflexes. Normal great toe extension bilaterally. no saddle anesthesia) - Neuro Neuro: Alert and oriented X 3, No motor deficit, No sensory deficit, Normal speech - Psych Psych: Normal mood, Normal affect Results - Vitals Vitals: Vital Signs - 24 hr 05/15/20 12:27 Temperature 36.9 C Heart Rate 101 H Respiratory 16 Rate Blood Pressure 110/86 H O2 Saturation 95 Oxygen O2 Source Room air PD MEDICAL DECISION MAKING - ED course Complexity details: reviewed old records, reviewed results, re-evaluated patient, considered differential (No cauda equina, no spinal epidural abscess, no fracture, no aortic dissection or evidence of aneursym rupture), d/w patient, d/w family ED course: Patient with what appears to be sciatica, recent CT scan showed degenerative joint disease and degenerative disc disease in the spine. Had an MRI yesterday. Contacted [facility], this has not yet been read. He is not having any symptoms of cauda equina, epidural abscess at this time. Feels better after Toradol, Dilaudid and Decadron. Will place him on a Medrol Dosepak along with increasing his oxycodone from 5 mg every 8 hours to 5 to 10 mg every [address] also place him on a long-acting anti-inflammatory. Patient has a cane and walker at home as needed. Patient and family counseled regarding signs and symptoms for which I believe and urgent re-evaluation would be necessary. Patient with good understanding of and agreement to plan and is comfortable going home at this time This document was made in part using voice recognition software. While efforts are made to proofread this document, sound alike and grammatical errors may occur. Departure - Departure Disposition: Home, Self Care Clinical Impression: Sciatica Qualifiers: Laterality: bilateral Qualified Code(s): M54.31 - Sciatica, right side Condition: Good Instructions: ED Sciatica Follow-Up: Amrik Hope DO [Primary Care Provider] - Within 3 Days Prescriptions: Methylprednisolone [Medrol] 4 mg PO DAILY #1 tab.ds.pk Meloxicam [Mobic] 7.5 mg PO BID PRN #20 tablet PRN Reason: Pain Oxycodone HCl 5 - 10 mg PO Q6H PRN #14 tablet PRN Reason: pain Comments: Return if you worsen. Follow up with your doctor for further care. Your MRI has not been read yet from [facility]. Results should be available on Sunday. Do not drink alcohol or drive while on narcotic pain medicine. Note that many narcotic pain relievers also contain tylenol/acetaminophen. Please ensure that your total dose of acetaminophen from all sources does not exceed 3 grams (3000mg) per day. You may constipated on this medication, take a stool softener such as "Colace" twice a day while you are on it. Also recommend a afhw-bec-dxmgusc laxative such as senna or MiraLAX any day that you do not have a bowel movement. If you received narcotic pain medication in the emergency department, do not drive or operate machinery for the next 24 hours.
[2020-05-15 13:58] VITALS: BP 141/61
== END 2020-05-15 13:58 | disposition home or self-care (01) ==
LOC: ED 12:19
DX: M51.16 Intervertebral disc disorders with radiculopathy, lumbar region (principal); M47.26 Other spondylosis with radiculopathy, lumbar region
CPT/HCPCS: 96372; 99283; 99285; A9270; J1170

== ENCOUNTER 2020-05-25 11:17 | Outpatient (CLI) | payer MEDICARE, BC, OTHER | END 2020-05-25 11:18 | disposition short-term general hospital (02) | LOC: EMS 11:17 | PROVIDERS: ATTEND Surgery | DX: R20.0 Anesthesia of skin (principal); M54.9 Dorsalgia, unspecified; R26.2 Difficulty in walking, not elsewhere classified | CPT/HCPCS: A0425; A0429 ==

== ENCOUNTER 2020-10-14 13:44 | Outpatient (CLI) | payer MEDICARE, BC, OTHER ==
--- NOTE | 2020-10-14 17:10 | XRAY Report ---
PROCEDURE: Chest 2 View X-Ray INDICATIONS: COUGH,COPD TECHNIQUE: 2 view(s) of the chest. COMPARISON: CT chest dated 07/24/2019 and chest radiograph dated 07/10/2019 FINDINGS: Surgical changes and devices: None. There are 3 ring shaped radiopaque densities projecting over th e lower, lateral margins of the left lung base which project outside of the anterior chest on the lat eral view. These are artifact and outside of the patient's body. Lungs and pleura: No pleural effusions or pneumothorax. Lungs are clear. Stable hyperaeration and flattening of the bilateral hemidiaphragms compatible with reported history of chronic obstructive pu lmonary physiology. Mediastinum: Mediastinal contours are normal. Heart size is normal. Bones and chest wall: No suspicious bony abnormalities. Soft tissues appear unremarkable. IMPRESSION: Chest without acute cardiopulmonary abnormalities or focal airspace disease. Findings co mpatible with chronic obstructive pulmonary physiology/COPD. Reviewed by: Andres Villegas MD on 10/14/2020 5:08 PM PDT Approved by: Andres Villegas MD on 10/14/2020 5:08 PM PDT Station ID: [id number]
== END 2020-10-14 13:45 | disposition home or self-care (01) ==
LOC: DI.N 13:44
PROVIDERS: ATTEND Family Medicine
DX: R05 Cough (principal); J44.9 Chronic obstructive pulmonary disease, unspecified

== ENCOUNTER 2020-12-16 12:58 | Outpatient (CLI) | payer MEDICARE, BC, OTHER ==
--- NOTE | 2020-12-16 16:58 | CT Report ---
PROCEDURE: Low Dose Lung Cancer Screen INDICATIONS: HX OF TABACCO USE TECHNIQUE: Noncontrast low-dose 5 mm thick sections acquired from the pulmonary apices to the posterior costophr enic angles. 7 mm thick coronal and sagittal MIP reformats were then acquired. For radiation dose r eduction, the following was used: automated exposure control, adjustment of mA and/or kV according t o patient size. COMPARISON: None. FINDINGS: Image quality: Excellent. Lungs and pleura: Mediastinum: Heart size is normal. No pericardial effusion. No mediastinal adenopathy by size crit eria. Thoracic aorta and central pulmonary arteries are normal in size. Esophagus is normal in diana nasir. No hiatal hernia. Bones and chest wall: No suspicious bony lesions. No vertebral body compression fractures. No axil danya or supraclavicular adenopathy by size criteria. The thyroid is normal in size and there are no incidental findings. Abdomen: Visualized upper abdomen solid organs and bowel loops appear normal in the absence of contr ast. Note is made of a rounded exophytic cyst like structure projecting from the anterolateral left upper renal cortex. The medial border of this structure could be seen on prior lumbosacral spine CT s ligia 05/08/2020. IMPRESSION: Mild centrilobular emphysema. Slight interstitial prominence consistent with prior smoking history. N o early manifestation of lung mass is identified. Incidental note is made of a exophytic cyst at the upper outer border of the left kidney. This could be further assessed by ultrasound to document cyst as the cause if clinically warranted. Lung RADS category 1, follow-up similar low-dose noncontrast CT scanning is recommended in one year f or this patient. CLINICAL RECOMMENDATION STATEMENTS: In patients <35 years with an ITN detected on CT, MRI, or extrathyroidal ultrasound, the Committee re commends further evaluation with dedicated thyroid ultrasound if the nodule is ?1 cm and has no suspi cious imaging features, and if the patient has normal life expectancy. In patients ?35 years with an ITN detected on CT, MRI, or extrathyroidal ultrasound, the Committee re commends further evaluation with dedicated thyroid ultrasound if the nodule is ?1.5 cm and has no earnestine picious imaging features, and if the patient has normal life expectancy. (ACR, 2014) Reviewed by: Dariusz Lawrence MD on 12/16/2020 4:57 PM PDT Approved by: Dariusz Lawrence MD on 12/16/2020 4:57 PM PDT Station ID: [id number]
== END 2020-12-16 12:59 | disposition home or self-care (01) ==
LOC: DI 12:58
PROVIDERS: ATTEND Family Medicine
DX: Z12.2 Encounter for screening for malignant neoplasm of respiratory organs (principal); F17.210 Nicotine dependence, cigarettes, uncomplicated; J43.2 Centrilobular emphysema; N28.1 Cyst of kidney, acquired

== ENCOUNTER 2021-02-22 08:00 | Outpatient (CLI) | payer MEDICARE, BC, OTHER ==
[2021-02-22 11:53] LABS: ABNORMAL LYMPHS % (MANUAL) 0 %; BAND NEUTROPHILS % (MANUAL) 0 %
[2021-02-22 18:53] LABS: BASOPHILS % (AUTO) 0.5 %; EOSINOPHILS % (AUTO) 1.7 %; HCT - HEMATOCRIT 43.5 % (42.0-52.0); HGB - HEMOGLOBIN 14.1 g/dL (14.0-18.0); LYMPHOCYTES % (AUTO) 12.8 %; MEAN CORPUSCULAR HEMOGLOBIN 30.1 pg (27.0-31.0); MEAN CORPUSCULAR HGB CONC 32.4 g/dL (32.0-36.0); MEAN CORPUSCULAR VOLUME 92.9 fL (80.0-94.0); MEAN PLATELET VOLUME 9.8 fL (7.4-11.4); MONOCYTES % (AUTO) 7.6 %; NEUTROPHILS % (AUTO) 75.8 %; PLT - PLATELET COUNT 384 10^3/uL (130-450); RED BLOOD COUNT 4.68 10^6/uL (4.70-6.10); RED CELL DISTRIBUTION WIDTH 13.1 % (12.0-15.0)
[2021-02-22 19:16] LABS: ALBUMIN 3.9 g/dL (3.2-5.5); ALBUMIN/GLOBULIN RATIO 1.1 (1.0-2.2); ALKALINE PHOSPHATASE 114 IU/L (42-121); ALT ALANINE AMINOTRANSFERASE 19 IU/L (10-60); AST ASPARTATE AMINOTRANSFERASE 20 IU/L (10-42); BILIRUBIN,TOTAL 0.6 mg/dL (0.2-1.0); BUN - BLOOD UREA NITROGEN 13 mg/dL (6-20); CALCIUM 9.3 mg/dL (8.5-10.3); CARBON DIOXIDE - CO2 26 mmol/L (21-32); CHLORIDE 104 mmol/L (101-111); CHOLESTEROL 181 mg/dL; CREATININE 0.8 mg/dL (0.6-1.2); GFR - MDRD 95 (>89); GLUCOSE 99 mg/dL (70-100); HDL CHOLESTEROL 36 mg/dL; LDL CHOLESTEROL,CALCULATED 121 mg/dL; LDL/HDL RATIO 3.4 (<3.6); POTASSIUM 4.5 mmol/L (3.5-5.0); SODIUM 139 mmol/L (135-145); TOTAL PROTEIN 7.3 g/dL (6.7-8.2); TRIGLYCERIDES 120 mg/dL; VLDL CHOLESTEROL 24 mg/dL
[2021-02-22 19:51] LABS: LYMPHOCYTES % (MANUAL) 8 %; NEUTROPHILS # (MANUAL) 11.1 10^3/uL (1.5-6.6)
[2021-02-22 19:52] LABS: EOSINOPHILS # (MANUAL) 0.1 10^3/uL (0-0.7); MONOCYTES # (MANUAL) 0.5 10^3/uL (0.0-1.0)
[2021-02-22 20:04] LABS: DIFFERENTIAL COMMENT MANUAL DIFFERENTIAL; PLATELET ESTIMATE, MANUAL NORMAL (130-450,000) (NORMAL); PLATELET MORPHOLOGY NORMAL APPEARANCE (NORMAL); RBC MORPHOLOGY (MULTIPLE) NORMAL APPEARANCE (NORMAL)
[2021-02-22 20:08] LABS: WHITE BLOOD COUNT 12.8 x10^3/uL (4.8-10.8)
[2021-02-22 20:33] LABS: ESTIMATED AVERAGE GLUCOSE 117 mg/dL (70-100); HEMOGLOBIN A1c% 5.7 % (4.27-6.07)
== END 2021-02-22 23:59 | disposition home or self-care (01) ==
LOC: LAB.WCP 08:00
PROVIDERS: ATTEND Family Medicine
DX: E78.5 Hyperlipidemia, unspecified (principal); R73.01 Impaired fasting glucose; R97.20 Elevated prostate specific antigen [PSA]; R23.8 Other skin changes; Z79.899 Other long term (current) drug therapy
CPT/HCPCS: 36415; 80053; 80061; 83036; 83721; 84153; 85025

== ENCOUNTER 2021-06-18 14:30 | Outpatient (CLI) | payer MEDICARE, BC, OTHER | END 2021-06-18 23:59 | disposition home or self-care (01) | LOC: LAB 14:30 | PROVIDERS: ATTEND Physician Assistant | DX: R04.2 Hemoptysis (principal); R91.8 Other nonspecific abnormal finding of lung field; Z20.822 Contact with and (suspected) exposure to COVID-19 | CPT/HCPCS: 71046; U0004 ==

== ENCOUNTER 2021-06-18 15:34 | Outpatient (CLI) | payer MEDICARE, BC, OTHER ==
--- NOTE | 2021-06-18 18:30 | XRAY Report ---
PROCEDURE: Chest 2 View X-Ray INDICATIONS: HEMOPTYSIS, UNSPECIFIED TECHNIQUE: 2 view(s) of the chest. COMPARISON: 10/14/2020 05/18/2016. Correlation is made with chest CT, 07/24/2019 FINDINGS: Surgical changes and devices: None. Lungs and pleura: No pleural effusions or pneumothorax. Focal right upper lobe opacity is seen, whic h is new compared to the 10/14/2020 examination. Mediastinum: Mediastinal contours are normal. Heart size is normal. Bones and chest wall: No suspicious bony abnormalities. Age-appropriate degenerative changes are see n. Soft tissues appear unremarkable. IMPRESSION: Focal right upper lobe opacity is seen, which is new compared to the 10/14/2020 examination. Given its appearance since the prior, this is attributed to focal infiltrate. For this patient's presenting history of hemoptysis, please consider dedicated follow-up chest CT wit h contrast for further evaluation. Reviewed by: Elfego Thakkar MD on 06/18/2021 5:28 PM [place] Approved by: Elfego Thakkar MD on 06/18/2021 5:28 PM [place] Station ID: [id number]
== END 2021-06-18 15:35 | disposition home or self-care (01) ==
LOC: DI 15:34
PROVIDERS: ATTEND Physician Assistant
DX: R91.8 Other nonspecific abnormal finding of lung field (principal); R04.2 Hemoptysis

== ENCOUNTER 2021-06-23 08:21 | Outpatient (CLI) | payer MEDICARE, BC, OTHER ==
[2021-06-23] MEDS ORDERED: IOVERSOL 320 100 ML VIAL IVP ONE ×2 (08:50→09:14)
--- NOTE | 2021-06-23 09:44 | CT Report ---
PROCEDURE: CHEST W INDICATIONS: HEMOPTYSIS, UNSPECIFIED CONTRAST: IV TECHNIQUE: After the administration of intravenous contrast, 1 mm axial images were acquired from the pulmonary apices through the posterior costophrenic angles. Axial 5 mm soft tissue kernel reconstructions were performed as well as 8 mm axial MIP and coronal and sagittal 5 mm reformations. For radiation dose reduction, the following was used: automated exposure control, adjustment of mA and/or kV according to patient size. COMPARISON: None. FINDINGS: Image quality: Excellent. Lungs and pleura: There is a new mass within the lateral aspect of the right upper lobe which appears partially necrotic, measuring roughly 55 mm transverse. There is moderate surrounding airspace opaci ty, consistent with post obstructive phenomenon. Scarring within the right middle lobe medial segment is present, as before. No pleural effusions or pneumothorax. Thickening of the right upper lobe bron chovascular bundles is present. Central and peripheral airways are otherwise patent and normal in barbie iber. Mediastinum: Heart size is normal. There is a new small pericardial effusion. Moderate calcificatio n of the coronary vasculature is present, as before. No mediastinal or hilar adenopathy by size crite micki. Thoracic aorta and central pulmonary arteries are normal in size. Esophagus is normal in calib er. No change in small hiatal hernia. Bones and chest wall: No suspicious bony lesions. No vertebral body compression fractures. No axil danya or supraclavicular adenopathy by size criteria. There is a left thyroid mass, as before, measuri ng roughly 40 mm diameter. Abdomen: Visualized upper abdominal solid organs appear normal. Upper abdominal bowel loops are nor mal in caliber. IMPRESSION: 1. 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 2. New small pericardial effusion. 3. No change in left thyroid mass. This could be further assessed with thyroid ultrasound, if clinica lly indicated. Next line 4. Small hiatal hernia. 5. Coronary artery disease. CLINICAL RECOMMENDATION STATEMENTS: In patients <35 years with an ITN detected on CT, MRI, or extrathyroidal ultrasound, the Committee re commends further evaluation with dedicated thyroid ultrasound if the nodule is "e1 cm and has no susp icious imaging features, and if the patient has normal life expectancy. In patients "e35 years with an ITN detected on CT, MRI, or extrathyroidal ultrasound, the Committee r ecommends further evaluation with dedicated thyroid ultrasound if the nodule is "e1.5 cm and has no s uspicious imaging features, and if the patient has normal life expectancy. (ACR, 2014) Reviewed by: Debbie Baxter MD on 06/23/2021 9:43 AM PST Approved by: Debbie Baxter MD on 06/23/2021 9:43 AM PST Station ID: [id number]
== END 2021-06-23 08:22 | disposition home or self-care (01) ==
LOC: DI 08:21
PROVIDERS: ATTEND Physician Assistant Medical
DX: R04.2 Hemoptysis (principal); C34.11 Malignant neoplasm of upper lobe, right bronchus or lung; I31.3 Pericardial effusion (noninflammatory); E07.89 Other specified disorders of thyroid; K44.9 Diaphragmatic hernia without obstruction or gangrene; I25.10 Atherosclerotic heart disease of native coronary artery without angina pectoris
CPT/HCPCS: 36415; 71260; 82565; Q9967

== ENCOUNTER 2021-06-27 08:00 | Outpatient (CLI) | payer MEDICARE, BC, OTHER | END 2021-06-27 23:59 | disposition home or self-care (01) | LOC: LAB.WCP 08:00 | PROVIDERS: ATTEND Family Medicine | DX: R04.2 Hemoptysis (principal) | CPT/HCPCS: 87070; 87077; 87205 ==

== ENCOUNTER 2021-08-24 09:19 | Outpatient (CLI) | payer MEDICARE, BC, OTHER ==
--- NOTE | 2021-08-24 13:40 | Ultrasound Report ---
PROCEDURE: Head or Neck Soft Tissue INDICATIONS: THYROID MASS TECHNIQUE: Real-time scanning was performed of the thyroid gland, with image documentation. COMPARISON: CT chest 06/23/2021, 07/14/2014. FINDINGS: Right: Thyroid lobe measures 4.1 x 1.8 x 1.2 cm, and is homogeneous in echotexture. Left: Thyroid lobe measures 7 x 2.8 x 2.3 cm, and is homogenous in echotexture. Isthmus: 0.2 cm thick. Nodule number: One Location: Right superior Size: 0.6 x 0.5 x 0.4 cm. Composition: Mixed solid and cystic Echogenicity: Isoechoic Shape: wider than tall. Margins: Smooth Echogenic foci: None Total points: 3 ACR TI-RADS category: TR 3, mildly suspicious Nodule number: Two Location: Left inferior Size: 5.6 x 3.8 x 3.3 cm. In retrospect this is seen dating back to 2013 where it measured at 2.5 c m in diameter on CT compared to 3.3 cm in diameter on more recent CT 06/23/2021. Composition: Mixed solid and cystic Echogenicity: Isoechoic Shape: wider than tall. Margins: Smooth Echogenic foci: None Total points: 2 ACR TI-RADS category: TR 2, not suspicious IMPRESSION: 1. Enlarged left lobe of the thyroid. 2. Left inferior thyroid nodule measuring 5.6 cm, TR 2, not suspicious. ACR TI-RADS definitions and recommendations: TI-RADS 1 (benign): 0 points. FNA not needed. TI-RADS 2 (not suspicious): 2 points. FNA not needed. TI-RADS 3 (mildly suspicious): 3 points. "FNA if 2.5 cm or larger, follow up if 1.5 cm or larger (at 1, 3, and 5 years). TI-RADS 4 (moderately suspicious): 4-6 points. "FNA if 1.5 cm or larger, follow up if 1 cm or larger (at 1, 2, 3, and 5 years). TI-RADS 5 (highly suspicious): 7 points or more. "FNA if 1 cm or larger, follow up if 0.5 cm or larger (every year for 5 years). Reviewed by: Lupillo Paul MD on 08/24/2021 1:39 PM PST Approved by: Lupillo Paul MD on 08/24/2021 1:39 PM [facility] Station ID: [id number]
== END 2021-08-24 09:20 | disposition home or self-care (01) ==
LOC: DI 09:19
PROVIDERS: ATTEND Family Medicine
DX: E04.2 Nontoxic multinodular goiter (principal)

== ENCOUNTER 2021-08-26 14:06 | Outpatient (CLI) | payer MEDICARE, BC, OTHER ==
[2021-08-26 18:34] LABS: CALCIUM 9.1 mg/dL (8.5-10.3); CREATININE 0.9 mg/dL (0.6-1.2); POTASSIUM 4.3 mmol/L (3.5-5.0)
== END 2021-08-26 14:07 | disposition home or self-care (01) ==
LOC: LAB.N 14:06
PROVIDERS: ATTEND Family Medicine
DX: R91.8 Other nonspecific abnormal finding of lung field (principal); N40.0 Benign prostatic hyperplasia without lower urinary tract symptoms; Z12.5 Encounter for screening for malignant neoplasm of prostate
CPT/HCPCS: 36415; 80048; 84153

== ENCOUNTER 2021-09-08 08:00 | Outpatient (CLI) | payer MEDICARE, BC, OTHER ==
--- NOTE | 2021-09-08 13:09 | XRAY Report ---
PROCEDURE: Chest 2 View X-Ray INDICATIONS: PNEUMONIA TECHNIQUE: 2 view(s) of the chest. COMPARISON: June 18, 2021. Reference is made to the CT chest dated June 23, 2021. FINDINGS: SUPPORT DEVICES: None. LUNGS/PLEURA: Interval enlargement airspace opacity in the in the right upper lung zone, compatible w ith the patient's known neoplastic mass. The remaining lung zones well aerated. MEDIASTINUM: The cardiomediastinal silhouette is within normal limits. BONES/SOFT TISSUES: No acute abnormality. IMPRESSION: 1.Redemonstrated mass in the right upper lung zone. Reviewed by: Cory Coreas MD on 09/08/2021 1:08 PM [facility] Approved by: Cory Coreas MD on 09/08/2021 1:08 PM [facility] Station ID: [id number]
== END 2021-09-08 23:59 | disposition home or self-care (01) ==
LOC: DI.N 08:00
PROVIDERS: ATTEND Nurse Practitioner
DX: J18.9 Pneumonia, unspecified organism (principal)

== ENCOUNTER 2021-12-05 13:38 | Outpatient (CLI) | payer MEDICARE, BC, OTHER ==
--- NOTE | 2021-12-05 18:19 | XRAY Report ---
PROCEDURE: Chest 2 View X-Ray INDICATIONS: COUGH TECHNIQUE: 2 view(s) of the chest. COMPARISON: 09/08/2021 FINDINGS: Surgical changes and devices: Probable right upper lobectomy.. Lungs and pleura: Interval resolution of large right upper lobe lung mass. There is horizontal residu al parenchymal density in the right axillary region, likely scar. There is volume loss in the right h emithorax with flattening of the right hemidiaphragm and opacity at the right lung base and extending superiorly along the posterior surface. There is no pneumothorax. The left lung is clear. Mediastinum: Mediastinal contours are normal. Heart size is normal. Bones and chest wall: No suspicious bony abnormalities. Severe degenerative changes in both shoulde rs. Soft tissues appear unremarkable. IMPRESSION: 1. Probable right upper lobectomy. 2. Right pleural effusion and probable right midlung scar. This is most likely residual postsurgical change though an underlying infection cannot be excluded. 3. Left lung clear. Reviewed by: Kenna Wesley MD on 12/05/2021 6:17 PM PDT Approved by: Kenna Wesley MD on 12/05/2021 6:17 PM PDT Station ID: [id number]
== END 2021-12-05 13:39 | disposition home or self-care (01) ==
LOC: DI.N 13:38
PROVIDERS: ATTEND Family Medicine
DX: J90 Pleural effusion, not elsewhere classified (principal)

== ENCOUNTER 2021-12-07 11:37 | Outpatient (CLI) | payer MEDICARE, BC, OTHER ==
--- NOTE | 2021-12-07 16:21 | XRAY Report ---
PROCEDURE: Chest 2 View X-Ray INDICATIONS: PLEURAL EFFUSION TECHNIQUE: 2 view(s) of the chest. COMPARISON: Chest x-ray 12/05/2021 FINDINGS: Surgical changes and devices: None. Lungs and pleura: There is a persistent appearance of mild right effusion, relatively unchanged. Patc hy superimposed opacities are also noted in the right lung, slightly improved. Mediastinum: Mediastinal contours are normal. Heart size is normal. Bones and chest wall: No suspicious bony abnormalities. Soft tissues appear unremarkable. IMPRESSION: Right pleural effusion with slight appearance of improved superimposed opacities likely representing atelectasis versus pneumonia. Reviewed by: Edilma Wilson MD on 12/07/2021 4:19 PM PDT Approved by: Edilma Wilson MD on 12/07/2021 4:19 PM PDT Station ID: [id number]
== END 2021-12-07 11:38 | disposition home or self-care (01) ==
LOC: DI.N 11:37
PROVIDERS: ATTEND Physician Assistant
DX: R91.8 Other nonspecific abnormal finding of lung field (principal); J15.9 Unspecified bacterial pneumonia; J90 Pleural effusion, not elsewhere classified

== ENCOUNTER 2022-01-18 13:35 | Emergency (ER) | payer MEDICARE, BC, OTHER ==
--- NOTE | 2022-01-18 14:02 | ED Physician Documentation ---
PD HPI GI BLEED - Stated complaint Stated Complaint: MALE - Chief complaint Chief Complaint: Abd Pain - History obtained from History obtained from: Patient - History of Present Illness Timing - onset: Last night Timing - details: Abrupt onset, Still present (much less today with just some mild blood in rectum. No BM output today.) Associated symptoms: BRBPR (He had prepped red to purplish. Stool per rectum without any formed stool last night a couple of times. Diminished this morning with no real bowel movement today. No lightheadedness, no belly pain.), Maroon stool. No: Vomiting, Abdominal pain, Fever, Near syncope / syncope Contributing factors: No: Sick contact, Bad food, Recent antibiotics Improved by: No: Eating Worsened by: No: Eating Similar symptoms before: Has not had sx before Recently seen: Clinic (He went to the walk-in clinic for evaluation and was referred to the ER.) Review of Systems Constitutional: denies: Fever, Chills Nose: denies: Rhinorrhea / runny nose, Congestion Throat: denies: Sore throat Respiratory: denies: Cough PD PAST MEDICAL HISTORY - Past Medical History Respiratory: COPD Neuro: None GI: None Musculoskeletal: Chronic back pain - Past Surgical History Past Surgical History: Yes - Present Medications Home Medications: Ambulatory Orders Medication Instructions Recorded Confirmed Albuterol [Proventil Hfa] 1 puffs INH ONCE 04/02/13 02/22/20 Naproxen Sodium 2 mg PO DAILY 04/02/13 02/22/20 Tamsulosin [Flomax] 0.4 mg PO ONCE 04/02/13 02/22/20 Tiotropium [Spiriva] 1 puffs INH DAILY 04/02/13 02/22/20 Finasteride 5 mg PO DAILY 02/22/20 02/22/20 Fluticasone Propion/Salmeterol 1 each NEB BID 02/22/20 02/22/20 [Wixela 100-50 Inhub] Hydrocodone/Acetaminophen 1 - 2 tab PO Q6H PRN #14 tablet 02/22/20 [Hydrocodone-Acetamin 5-325 mg] Omeprazole 20 mg PO DAILY 02/22/20 02/22/20 Oxycodone HCl 5 mg PO Q8H PRN #20 tablet 05/08/20 Tizanidine HCl 4 mg PO TID PRN #25 capsule 05/08/20 dexAMETHasone [Decadron] 4 mg PO DAILY #5 tablet 05/08/20 Meloxicam [Mobic] 7.5 mg PO BID PRN #20 tablet 05/15/20 Oxycodone HCl 5 - 10 mg PO Q6H PRN #14 tablet 05/15/20 methylPREDNISolone [Medrol] 4 mg PO DAILY #1 tab.ds.pk 05/15/20 - Allergies Allergies/Adverse Reactions: Allergies Allergy/AdvReac Type Severity Reaction Status Date / Time No Known Drug Allergies Allergy Verified 01/18/22 13:50 - Social History Does the pt smoke?: No Smoking Status: Never smoker Does the pt drink ETOH?: Yes Does the pt have substance abuse?: No - Immunizations Immunizations are current?: Yes PD ED PE NORMAL - Vitals Vital signs reviewed: Yes - General General: Alert and oriented X 3, No acute distress, Well developed/nourished - Neck Neck: Supple, no meningeal sign, No adenopathy - Cardiac Cardiac: RRR, No murmur - Respiratory Respiratory: Clear bilaterally - Abdomen Abdomen: Normal bowel sounds, Soft, Non tender, Non distended, No organomegaly - Male Male : Deferred - Rectal Rectal: Other (normal anus/rectum without hemorrhoids. There is minimal soft material in vault that is purple/red colored. No melena. ) - Back Back: No CVA TTP - Derm Derm: Normal color, Warm and dry - Extremities Extremities: Normal ROM s pain, No edema, No calf tenderness / cord - Neuro Neuro: Alert and oriented X 3, No motor deficit, Normal speech Results - Vitals Vitals: Vital Signs - 24 hr 01/18/22 01/18/22 13:42 15:06 Temperature 97.8 C H Heart Rate 66 Heart Rate [ 72 Sitting] Heart Rate [ 76 Standing] Heart Rate [ 62 Supine] Respiratory 16 Rate Blood Pressure 153/72 H Blood Pressure 126/67 [Sitting] Blood Pressure 115/61 [Standing] Blood Pressure 137/66 H [Supine] O2 Saturation 96 Oxygen O2 Source Room air - Labs Labs: Laboratory Tests 01/18/22 01/18/22 01/18/22 14:00 14:00 14:00 WBC 11.8 H RBC 4.25 L Hgb 12.0 L Hct 37.3 L MCV 87.8 MCH 28.2 MCHC 32.2 RDW 15.8 H Plt Count 270 MPV 9.3 Neut # (Auto) 9.1 H Lymph # (Auto) 1.7 Sequoyah # (Auto) 0.8 Eos # (Auto) 0.2 Baso # (Auto) 0.1 Absolute Nucleated RBC 0.00 Nucleated RBC % 0.0 PT 12.9 H INR 1.2 Sodium Potassium Chloride Carbon Dioxide Anion Gap BUN Creatinine Estimated GFR (MDRD) Glucose Calcium Total Bilirubin AST ALT Alkaline Phosphatase Total Protein Albumin Globulin Albumin/Globulin Ratio Blood Type B NEGATIVE Antibody Screen NEGATIVE 01/18/22 01/18/22 14:00 15:56 WBC RBC Hgb 11.9 L Hct 37.1 L MCV MCH MCHC RDW Plt Count MPV Neut # (Auto) Lymph # (Auto) [place]ah # (Auto) Eos # (Auto) Baso # (Auto) Absolute Nucleated RBC Nucleated RBC % PT INR Sodium 137 Potassium 4.3 Chloride 101 Carbon Dioxide 27 Anion Gap 9.0 BUN 15 Creatinine 0.9 Estimated GFR (MDRD) 82 L Glucose 130 H Calcium 9.3 Total Bilirubin 0.3 AST 18 ALT 15 Alkaline Phosphatase 127 H Total Protein 7.4 Albumin 3.9 Globulin 3.5 Albumin/Globulin Ratio 1.1 Blood Type Antibody Screen - Rads (name of study) abd/pelvic CT Radiology: Prelim report reviewed (diverticula without diverticulitis. No noted mass. no acute findings. ), See rad report PD MEDICAL DECISION MAKING - ED course Complexity details: re-evaluated patient (He still feels well after blood tests and CT scan. No urge for bowel movement. Vital signs are good. We will recheck his blood count at 2 hours.), considered differential (Bright red to maroon stools last night with diminished to none this morning. No abdominal pain. No lightheadedness. Not on blood thinners. No prior similar.), d/w patient Departure - Departure Disposition: 01 Home, Self Care Clinical Impression: Lower GI bleeding, Mild anemia Condition: Stable Record reviewed to determine appropriate education?: Yes Instructions: ED Hematochezia Stable Follow-Up: Annalee Willis PA-C [Primary Care Provider] - Turner Gillis MD [Provider Admit Priv/Credential] - Damir Cardenas MD [Provider Admit Priv/Credential] - Comments: Your CT scan shows some diverticula/diverticulosis but no signs of diverticulitis. They do comment on a moderate stool content through the intestine. No masses are seen. Commonly a limited episode of lower intestinal bleeding like this may come from a diverticula irritation or a polyp. Concern would be for something else to be causing it. At this point we would consider a twofold approach with the first being signs of ongoing bleeding. At this point you are not having much more blood out and your blood count is good over the 2-hour interval. It does not look like significant ongoing bleeding. Return to the ER if significant blood output again. Otherwise would like to recheck your blood count in the next couple of days. That could be at the presumably walk-in clinic or back here in the ER to get your blood count rechecked in 2 days. The other aspect of the evaluation is: what the bleeding is from. If you have no further rectal bleeding, then the evaluation can be in the near future but not as urgent with a colonoscopy. I provided the names of 2 of the surgeons in town who are not available currently today or tomorrow but should be in the near future end of this week or next week. Call and make appointments with their office however to set up something for hopefully next week. A colonoscopy would be the way to evaluate for other potential causes such as tumors etc. I would suggest a stool softener daily such as docusate 100 mg. Tylenol if needed for pains.
[2022-01-18 14:08] LABS: BASOPHILS # (AUTO) 0.1 10^3/uL (0.0-0.1); BASOPHILS % (AUTO) 0.4 %; EOSINOPHILS # (AUTO) 0.2 10^3/uL (0.0-0.7); EOSINOPHILS % (AUTO) 1.5 %; HCT - HEMATOCRIT 37.3 % (42.0-52.0); LYMPHOCYTES # (AUTO) 1.7 10^3/uL (1.5-3.5); LYMPHOCYTES % (AUTO) 14.4 %; MEAN CORPUSCULAR HEMOGLOBIN 28.2 pg (27.0-31.0); MEAN CORPUSCULAR HGB CONC 32.2 g/dL (32.0-36.0); MEAN CORPUSCULAR VOLUME 87.8 fL (80.0-94.0); MEAN PLATELET VOLUME 9.3 fL (7.4-11.4); MONOCYTES # (AUTO) 0.8 10^3/uL (0.0-1.0); MONOCYTES % (AUTO) 6.5 %; NEUTROPHILS # (AUTO) 9.1 10^3/uL (1.5-6.6); PLT - PLATELET COUNT 270 10^3/uL (130-450); RED BLOOD COUNT 4.25 10^6/uL (4.70-6.10); RED CELL DISTRIBUTION WIDTH 15.8 % (12.0-15.0); WHITE BLOOD COUNT 11.8 x10^3/uL (4.8-10.8)
[2022-01-18 14:16] LABS: INR 1.2 (0.8-1.2); PT - PROTHROMBIN TIME 12.9 secs (9.9-12.6)
[2022-01-18 14:23] LABS: ALBUMIN 3.9 g/dL (3.2-5.5); ALBUMIN/GLOBULIN RATIO 1.1 (1.0-2.2); BILIRUBIN,TOTAL 0.3 mg/dL (0.2-1.0); CALCIUM 9.3 mg/dL (8.5-10.3); CREATININE 0.9 mg/dL (0.6-1.2); POTASSIUM 4.3 mmol/L (3.5-5.0); TOTAL PROTEIN 7.4 g/dL (6.7-8.2)
[2022-01-18] MEDS ORDERED: SODIUM CHLORIDE 0.9% 500 ML IV STA (14:32)
--- NOTE | 2022-01-18 15:51 | CT Report ---
PROCEDURE: Abdomen/Pelvis WO INDICATIONS: lower GI bleeding TECHNIQUE: Noncontrast 5 mm thick sections acquired from the diaphragms to the symphysis. 5 mm coronal and sagi ttal reformats were then performed. For radiation dose reduction, the following was used: automated exposure control, adjustment of mA and/or kV according to patient size. COMPARISON: None. FINDINGS: Image quality: Excellent. ABDOMEN: Lung bases: Trace right-sided pleural fluid collection. Consolidation in the posterior aspect of the right lung base which could represent atelectasis or pneumonia. Heart size is normal. After static c alcification is noted in the visualized coronary vasculature. Solid organs: Liver and spleen are normal in size. Gallbladder is within normal limits Pancreas is normal in contours. No adrenal nodules. Kidneys are normal in size, without hydronephrosis or neph rolithiasis. 4.6 cm simple left renal cyst. Peritoneum and bowel: Unenhanced bowel loops demonstrate normal wall thickness and caliber. Moderate amount of stool throughout the colon. Multiple diverticula are noted in the colon without evidence o f diverticulitis. No free fluid or air. The appendix is normal. Nodes and vessels: No retroperitoneal or mesenteric adenopathy by size criteria. Aorta and inferior vena cava are normal in caliber. Scattered atherosclerotic calcifications are noted in the abdominal and pelvic vasculature. Miscellaneous: No ventral hernias. PELVIS: Genitourinary: Bladder wall thickness is normal. Miscellaneous: No inguinal hernias or adenopathy. Bones: No suspicious bony lesions. No vertebral body compression fractures. Spine degenerative disc disease and facet arthropathy are noted. L4-L5 ankylosis. Grade 1 L4-L5 anterolisthesis. IMPRESSION: 1. No acute disease process. 2. Colonic diverticulosis without evidence of diverticulitis. 3. Moderate fecal loading throughout the colon. 4. Consolidation in the right lung base which could represent atelectasis or pneumonia. 5. Atherosclerosis including the visualized coronary vasculature. 6. No definite bowel mass, however noncontrast CT scan has low sensitivity for bowel mass. If there i s clinical concern for bowel neoplasm as the underlying cause of GI bleeding, gastroenterology consul tation should be considered. Reviewed by: Berta Maldonado MD, PhD on 01/18/2022 3:49 PM PDT Approved by: Berta Maldonado MD, PhD on 01/18/2022 3:49 PM PDT Station ID: [id number]
[2022-01-18 15:59] LABS: HCT - HEMATOCRIT 37.1 % (42.0-52.0); HGB - HEMOGLOBIN 11.9 g/dL (14.0-18.0)
[2022-01-18 16:43] VITALS: BP 129/72
== END 2022-01-18 16:43 | disposition home or self-care (01) ==
LOC: ED 13:35
DX: K92.2 Gastrointestinal hemorrhage, unspecified (principal); D64.9 Anemia, unspecified
CPT/HCPCS: 36415; 80053; 85014; 85018; 85025; 85610; 86850; 86900; 86901; 96360; 99283

== ENCOUNTER 2022-01-20 08:00 | Outpatient (CLI) | payer MEDICARE, BC, OTHER ==
[2022-01-20 17:34] LABS: BASOPHILS % (AUTO) 0.5 %; EOSINOPHILS # (AUTO) 0.2 10^3/uL (0.0-0.7); HCT - HEMATOCRIT 31.3 % (42.0-52.0); HGB - HEMOGLOBIN 9.7 g/dL (14.0-18.0); LYMPHOCYTES # (AUTO) 1.3 10^3/uL (1.5-3.5); LYMPHOCYTES % (AUTO) 14.5 %; MEAN CORPUSCULAR HEMOGLOBIN 27.7 pg (27.0-31.0); MEAN CORPUSCULAR VOLUME 89.4 fL (80.0-94.0); MEAN PLATELET VOLUME 10.8 fL (7.4-11.4); MONOCYTES # (AUTO) 0.7 10^3/uL (0.0-1.0); MONOCYTES % (AUTO) 7.5 %; NEUTROPHILS # (AUTO) 6.5 10^3/uL (1.5-6.6); NEUTROPHILS % (AUTO) 75.2 %; PLT - PLATELET COUNT 265 10^3/uL (130-450); RED CELL DISTRIBUTION WIDTH 15.9 % (12.0-15.0); WHITE BLOOD COUNT 8.7 x10^3/uL (4.8-10.8)
[2022-01-20 18:01] LABS: ALBUMIN 3.6 g/dL (3.2-5.5); ALBUMIN/GLOBULIN RATIO 1.1 (1.0-2.2); BILIRUBIN,TOTAL 0.4 mg/dL (0.2-1.0); CALCIUM 8.9 mg/dL (8.5-10.3); CREATININE 0.9 mg/dL (0.6-1.2); POTASSIUM 4.3 mmol/L (3.5-5.0); TOTAL PROTEIN 6.8 g/dL (6.7-8.2)
== END 2022-01-20 23:59 | disposition home or self-care (01) ==
LOC: LAB.N 08:00
PROVIDERS: ATTEND Nurse Practitioner
DX: K62.5 Hemorrhage of anus and rectum (principal)
CPT/HCPCS: 36415; 80053; 85025

== ENCOUNTER 2022-02-17 07:24 | Day surgery (SDC) | payer MEDICARE, BC, OTHER ==
[2022-02-17] MEDS ORDERED: LACTATED RINGERS 1,000 ML IV ONE (07:45)
[2022-02-17] MEDS ORDERED: PROPOFOL 500 MG/50 ML 500 MG/50 ML VIAL ONE (08:00)
[2022-02-17] MEDS ORDERED: LIDOCAINE-MPF 2% 5 ML VIAL ONE (08:00)
--- NOTE | 2022-02-17 08:03 | ANESTHESIA ---
Pre-Anesthesia VS, & Labs - Diagnosis COLON SCREENING; RECENT BLOOD NOTED IN STOOL - Procedure COLONOSCOPY Vital Signs: Temp Pulse Resp BP Pulse Ox 36.4 C L 70 16 142/73 H 96 02/17/22 07:45 02/17/22 07:45 02/17/22 07:45 02/17/22 07:45 02/17/22 07:45 Height: 5 ft 8 in Weight (kg): 74.84 kg Body Mass Index: 25.0 BMI Classification: Overweight - NPO >8 hours Home Medications and Allergies Home Medications: Ambulatory Orders Gabapentin [Neurontin] 300 - 600 mg PO HS 02/13/22 Magnesium Oxide 400 mg PO DAILY 02/13/22 Montelukast [Singulair] 10 mg PO QPM 02/13/22 Albuterol [Proventil Hfa] 1 puffs INH Q4HR PRN 04/02/13 Naproxen Sodium 220 mg PO PRN PRN 04/02/13 Tamsulosin [Flomax] 0.8 mg PO DAILY 04/02/13 Tiotropium [Spiriva] 1 puffs INH DAILY 04/02/13 Finasteride 5 mg PO DAILY 02/22/20 Fluticasone Propion/Salmeterol [Wixela 100-50 Inhub] 1 each NEB BID 02/22/20 Omeprazole 20 mg PO DAILY 02/22/20 Gabapentin [Neurontin] 300 - 600 mg PO HS 02/13/22 Magnesium Oxide 400 mg PO DAILY 02/13/22 Montelukast [Singulair] 10 mg PO QPM 02/13/22 Allergies/Adverse Reactions: Allergies Allergy/AdvReac Type Severity Reaction Status Date / Time No Known Drug Allergies Allergy Verified 02/17/22 07:55 Anes History & Medical History - Anesthetic History Anesthesia Complications: reports: No previous complications Family history of Anesthesia Complications: Denies Family history of Malignant Hyperthermia: Denies - Medical History Cardiovascular: reports: None Pulmonary: reports: COPD, Emphysema, Other (HOSPITAL ADMIT 10/2021 FOR LUNG INFECTION - WITH DRAINAGE TUBE PLACED) Gastrointestinal: reports: GERD, Other (BLOODY STOOL 3 WEEKS AGO) Urinary: reports: Benign prostate hypertrophy Neuro: reports: None Musculoskeletal: reports: Osteoarthritis, Chronic back pain Endocrine/Autoimmune: reports: None Blood Disorders: reports: None Skin: reports: None Smoking Status: Former smoker (35 YEAR SMOKER- QUIT 2002) Psychosocial: reports: No issues indicated History of Cancer?: No - Surgical History General: reports: Colonoscopy Cardiothoracic: reports: Other Orthopedic: reports: Spine surgery Exam General: Alert, Oriented x3, Cooperative, No acute distress Mouth Openin Fingerbreadth Neck Mobility: Normal Mallampati classification: III Thyromental Distance: less than 4 cm Respiratory: Lungs clear, Normal breath sounds, No respiratory distress, No accessory muscle use Cardiovascular: Regular rate, Normal S1, Normal S2, No murmurs Mental/Cognitive Status: Alert/Oriented X3, Normal for patient Cognitive Status: Within normal limits Plan Anesthesia Type: General, Total IV Consent for Procedure(s) Verified and Reviewed: Yes Code Status: Attempt Resuscitation ASA classification: 2-Mild systemic disease Is this case an emergency?: No
[2022-02-17] MEDS ORDERED: LACTATED RINGERS 450 ML IV ONE (09:08)
[2022-02-17 09:20] VITALS: BP 111/64
--- NOTE | 2022-02-17 12:13 | ANESTHESIA POST OP EVALUATION ---
Anesthesia Post Eval - Post Anesthesia Eval Vitals: Last Vital Signs Temp 36.1 C L 02/17/22 09:19 Pulse 60 02/17/22 09:19 Resp 18 02/17/22 09:19 BP 111/64 02/17/22 09:19 Pulse Ox 98 02/17/22 09:19 CV Function Including HR & BP: Stable Pain Control: Satisfactory Nausea & Vomiting: Negative Mental Status: Baseline Respiratory Status: Airway Patent Hydration Status: Satisfactory Anesthesia Complications: None
== END 2022-02-17 07:25 | disposition home or self-care (01) ==
LOC: SDS 07:24
PROVIDERS: ATTEND Surgery
DX: Z12.11 Encounter for screening for malignant neoplasm of colon (principal); K57.30 Diverticulosis of large intestine without perforation or abscess without bleeding; J43.9 Emphysema, unspecified; Z87.891 Personal history of nicotine dependence
CPT/HCPCS: G0121; J7120

== ENCOUNTER 2022-07-13 14:37 | Outpatient (CLI) | payer MEDICARE, BC, OTHER ==
[2022-07-13 17:47] LABS: BASOPHILS # (AUTO) 0.1 10^3/uL (0.0-0.1); BASOPHILS % (AUTO) 0.8 %; EOSINOPHILS # (AUTO) 0.1 10^3/uL (0.0-0.7); EOSINOPHILS % (AUTO) 1.1 %; HCT - HEMATOCRIT 38.2 % (42.0-52.0); HGB - HEMOGLOBIN 11.6 g/dL (14.0-18.0); LYMPHOCYTES # (AUTO) 1.8 10^3/uL (1.5-3.5); LYMPHOCYTES % (AUTO) 24.2 %; MEAN CORPUSCULAR HEMOGLOBIN 25.2 pg (27.0-31.0); MEAN CORPUSCULAR HGB CONC 30.4 g/dL (32.0-36.0); MEAN CORPUSCULAR VOLUME 82.9 fL (80.0-94.0); MEAN PLATELET VOLUME 10.5 fL (7.4-11.4); MONOCYTES # (AUTO) 0.7 10^3/uL (0.0-1.0); MONOCYTES % (AUTO) 9.1 %; NEUTROPHILS # (AUTO) 4.9 10^3/uL (1.5-6.6); NEUTROPHILS % (AUTO) 64.5 %; PLT - PLATELET COUNT 325 10^3/uL (130-450); RED BLOOD COUNT 4.61 10^6/uL (4.70-6.10); RED CELL DISTRIBUTION WIDTH 15.3 % (12.0-15.0); WHITE BLOOD COUNT 7.6 x10^3/uL (4.8-10.8)
[2022-07-13 18:13] LABS: ALBUMIN 4.2 g/dL (3.2-5.5); ALBUMIN/GLOBULIN RATIO 1.2 (1.0-2.2); BILIRUBIN,TOTAL 0.8 mg/dL (0.2-1.0); CALCIUM 9.3 mg/dL (8.5-10.3); POTASSIUM 4.2 mmol/L (3.5-5.0); TOTAL PROTEIN 7.7 g/dL (6.7-8.2)
[2022-07-13 18:28] LABS: THYROID STIMULATING HORMONE 2.46 uIU/mL (0.34-5.60)
== END 2022-07-13 14:38 | disposition home or self-care (01) ==
LOC: LAB.N 14:37
PROVIDERS: ATTEND Physician Assistant
DX: R06.02 Shortness of breath (principal); R53.83 Other fatigue
CPT/HCPCS: 36415; 80053; 84443; 85025

== ENCOUNTER 2022-07-27 14:16 | Outpatient (CLI) | payer MEDICARE, BC, OTHER ==
--- NOTE | 2022-07-27 17:56 | Ultrasound Report ---
PROCEDURE: Ultrasound of the thyroid INDICATIONS: LUMBAR RADICULOPATHY, CERVICAL RADICULOPATHY, SOB, TECHNIQUE: Real-time scanning was performed of the thyroid gland, with image documentation. COMPARISON: 09/11/2021 FINDINGS: Right: Thyroid lobe measures 4.1 x 1.5 x 1.7 cm, and is homogeneous in echotexture. Left: Thyroid lobe measures 6.9 x 2.4 x 2.9 cm, and is homogenous in echotexture. Isthmus: 3 mm thick. Nodule number: One Location: ] Superior Size: 0.5 x 0.3 x 0.5 cm, previously 0.6 x 0.4, 0.5 cm. Composition: Solid Echogenicity: Hypoechoic Shape: wider than tall. Margins: Smooth Echogenic foci: None Total points: 3 ACR TI-RADS category: 3 Nodule number: Two Location: Left mid thyroid Size: 5.6 x 3.0 x 3.3 cm, previously 5.6 x 3.2 x 3.8 cm. Composition: Predominantly solid Echogenicity: Isoechoic Shape: wider than tall. Margins: Smooth Echogenic foci: Punctate Total points: 6 ACR TI-RADS category: 4 IMPRESSION: Nodule 2 has increased in TI-RADS category, and FNA is now recommended ACR TI-RADS definitions and recommendations: TI-RADS 1 (benign): 0 points. FNA not needed. TI-RADS 2 (not suspicious): 2 points. FNA not needed. TI-RADS 3 (mildly suspicious): 3 points. "FNA if 2.5 cm or larger, follow up if 1.5 cm or larger (at 1, 3, and 5 years). TI-RADS 4 (moderately suspicious): 4-6 points. "FNA if 1.5 cm or larger, follow up if 1 cm or larger (at 1, 2, 3, and 5 years). TI-RADS 5 (highly suspicious): 7 points or more. "FNA if 1 cm or larger, follow up if 0.5 cm or larger (every year for 5 years). Reviewed by: Braden Ho MD on 07/27/2022 4:55 PM AKST Approved by: Braden Ho MD on 07/27/2022 4:55 PM AKST Station ID: [id number]
== END 2022-07-27 14:17 | disposition home or self-care (01) ==
LOC: DI 14:16
PROVIDERS: ATTEND Physician Assistant
DX: E04.2 Nontoxic multinodular goiter (principal)

== ENCOUNTER 2022-07-29 13:47 | Outpatient (CLI) | payer MEDICARE, BC, OTHER ==
--- NOTE | 2022-07-31 08:45 | MRI Report ---
PROCEDURE: LUMBAR SPINE WO INDICATIONS: LUMBAR RADICULOPATHY, CERVICAL RADICULOPATHY, SOB, TECHNIQUE: Noncontrast sagittal T1 spin echo and T2 fast echo, sagittal STIR, axial T1 and T2 fast spin echo thr ough the lumbar spine. In cases with scoliosis, additional coronal T2 fast spin echo may be performe d. COMPARISON: CT lumbar spine 05/08/2020. FINDINGS: Image quality: Excellent. Alignment and Curvature: There is mild leftward scoliotic curvature with apex at L4. Bone Marrow: Marrow is of normal overall signal. No acute vertebral body compression fractures. Mi ld reactive endplate changes are present at L1-2, L3-4, mild L2-3, L4-5 and L5-S1. Spinal Cord: Conus medullaris terminates at the L1 level. Visualized cord demonstrates normal signa l and size. Paraspinous Soft Tissues: No paravertebral masses. Multiple T2 hyperintensities are present most trotter ggestive of simple cysts. Discs: Multilevel moderate to severe disc desiccation is present throughout the lumbar spine most sev ere from L2-3 through L5-S1. L1-L2: Mild disc bulge with ymdw-vf-yaxfngaj spinal stenosis. Eehg-sr-yxmpdumk bilateral foraminal narrowing, right greater than left with facet and ligamentum flavum hypertrophy. All interval progre ssion is present. L2-L3: Mild disc bulge with moderate to severe spinal stenosis. Severe left and mces-qk-ppejtsxt r ight foraminal narrowing with facet and ligamentum flavum hypertrophy. Minimal interval progression i s noted. L3-L4: Mild disc bulge with wyea-nv-jukzoxfv spinal stenosis. Severe right and moderate left forami nal narrowing with compression of the exiting right L3 nerve roots. Facet and ligamentum flavum hyper trophy are present. Mild interval progression. L4-L5: Mild disc bulge with mild spinal stenosis. Severe bilateral foraminal narrowing with facet a nd ligamentum flavum hypertrophy. Bilateral pars defects are present. L5-S1: Mild disc bulge with mild spinal stenosis. Moderate to severe bilateral foraminal narrowing with facet and ligamentum flavum hypertrophy. Minimal intervertebral compression. IMPRESSION: Significant multilevel degenerative changes demonstrating areas of minimal progression as above. Multilevel severe foraminal narrowing noted from L2-3 through L5-S1 secondary to facet/ligamentum fla vum arthropathy as well as anterior/retrolisthesis. Multilevel spinal stenosis most severe at L2-3 secondary to disc bulge with contributing effect of fa cet/ligamentum flavum arthropathy. Reviewed by: Edilma Wilson MD on 07/31/2022 8:44 AM PST Approved by: Edilma Wilson MD on 07/31/2022 8:44 AM PST Station ID: [id number]
--- NOTE | 2022-07-31 09:09 | MRI Report ---
PROCEDURE: CERVICAL SPINE WO INDICATIONS: LUMBAR RADICULOPATHY, CERVICAL RADICULOPATHY, SOB, TECHNIQUE: Noncontrast sagittal T1 spin echo and T2 fast spin echo, sagittal STIR, foraminal oblique sagittal T2 fast spin echo, and axial gradient echo or T2 fast spin echo through the cervical spine. COMPARISON: None. FINDINGS: Image quality: Excellent. Alignment and Curvature: There is a 3 mm anterolisthesis of C2 on C3, 3 mm retrolisthesis of C4 on C 5, 2 mm retrolisthesis of C5 on C6, 5 mm anterolisthesis of C7 on T1, T2 on T3 as well as 2 mm retrol isthesis of T1 on T2. Bone Marrow: Marrow demonstrates normal overall signal. Spinal Cord: Visualized spinal cord has normal size and signal. No cerebellar tonsillar herniation. Paraspinous Soft Tissues: No paravertebral masses. Prevertebral soft tissues are normal in thicknes s. Discs: Multilevel qtnbjahh-fw-ilxbru disc desiccation is present throughout the cervical spine. C2-C3: Minimal disc bulge with minimal spinal stenosis. Mild left foraminal narrowing with uncoverte bral hypertrophy C3-C4: Mild disc bulge with minimal spinal stenosis. Kitv-ml-iktznrdd bilateral foraminal narrowing , right greater than left with uncovertebral hypertrophy C4-C5: Mild disc bulge with mild spinal stenosis. Moderate bilateral foraminal narrowing, left great er than right with uncovertebral hypertrophy. C5-C6: Mild disc bulge without spinal stenosis. Moderate left and bgay-xs-kvvegdca right foraminal n arrowing with uncovertebral hypertrophy. C6-C7: Mild disc bulge with mild spinal stenosis. Moderate to severe right and moderate left foramin al narrowing with uncovertebral hypertrophic C7-T1: Mild disc bulge without spinal stenosis. No foraminal narrowing. IMPRESSION: Multilevel disc bulges. Multilevel foraminal narrowing overall moderate to severe secondary to uncovertebral arthropathy. Reviewed by: Edilma Wilson MD on 07/31/2022 9:07 AM PST Approved by: Edilma Wilson MD on 07/31/2022 9:07 AM PST Station ID: [id number]
== END 2022-07-29 13:48 | disposition home or self-care (01) ==
LOC: DI 13:47
PROVIDERS: ATTEND Physician Assistant
DX: M51.36 Other intervertebral disc degeneration, lumbar region (principal); M48.061 Spinal stenosis, lumbar region without neurogenic claudication; M51.37 Other intervertebral disc degeneration, lumbosacral region; M48.07 Spinal stenosis, lumbosacral region; M47.816 Spondylosis without myelopathy or radiculopathy, lumbar region; M47.817 Spondylosis without myelopathy or radiculopathy, lumbosacral region; M43.16 Spondylolisthesis, lumbar region; M50.31 Other cervical disc degeneration, high cervical region; M48.02 Spinal stenosis, cervical region; M47.812 Spondylosis without myelopathy or radiculopathy, cervical region

== ENCOUNTER 2022-08-09 12:31 | Outpatient (CLI) | payer MEDICARE, BC, OTHER | END 2022-08-09 12:32 | disposition home or self-care (01) | LOC: DI 12:31 | PROVIDERS: ATTEND Physician Assistant | DX: R06.02 Shortness of breath (principal); R53.83 Other fatigue; J44.9 Chronic obstructive pulmonary disease, unspecified; I51.7 Cardiomegaly | CPT/HCPCS: 93306 ==

== ENCOUNTER 2022-08-22 09:48 | Outpatient (CLI) | payer MEDICARE, BC, OTHER ==
[~2022-08-22 09:48] MED LIST changes: -BUFFERED LIDOCAINE 10 ML SYRINGE ONE; +LIDOCAINE-MPF 1% 5 ML VIAL ONE
[2022-08-22] MEDS ORDERED: LIDOCAINE-MPF 1% 5 ML VIAL TD ONE (10:56)
--- NOTE | 2022-08-22 15:36 | Ultrasound Report ---
PROCEDURE: FNA Bx w/US Gdn 1st Les INDICATIONS: THYROID NODULE TECHNIQUE: The indications, alternatives, benefits, risks, and complications of the procedure were explained to the patient. Written informed consent was obtained and placed in the chart. The area of interest wa s examined sonographically and a site was chosen for ultrasound guided percutaneous sampling. The sk in was prepared and draped in the usual fashion, and anesthetized with 1% lidocaine infiltrated from the skin down to the lesion. Multiple passes were then performed, with contents emptied into an appr [facility] pathology specimen container. A bandage was applied to the area of access at completion of t he study. COMPARISON: None. FINDINGS: Location(s) of lesion(s) sampled: Dominant left thyroid nodule [place]: 25 gauge hypodermic needles. Number of passes: 5 Medications: 1% lidocaine for local anaesthesia. Complications: None. IMPRESSION: Successful ultrasound-guided left thyroid nodule fine needle aspiration, with cytology results neisha bashir Reviewed by: Geoffrey Ambriz MD on 08/22/2022 3:35 PM PST Approved by: Geoffrey Ambriz MD on 08/22/2022 3:35 PM PST Station ID: [id number]
== END 2022-08-22 09:49 | disposition home or self-care (01) ==
LOC: DI 09:48
PROVIDERS: ATTEND Physician Assistant
DX: E04.1 Nontoxic single thyroid nodule (principal)
CPT/HCPCS: 10005

== ENCOUNTER 2022-09-28 10:27 | Outpatient (CLI) | payer MEDICARE, BC, OTHER ==
[2022-09-28 11:21] VITALS: BP 126/70
--- NOTE | 2022-09-28 11:21 | SLEEP CARE CONSULTATION ---
Information from patient questionnaire entered by Aaron Payne. I have reviewed and concur with the information entered by Aaron Payne. This document represents the service I personally performed and the decisions made by me, Erin Christie ARNP. History of Present Illness Service Date and Time: 09/28/2022 1027 Reason for Visit: New patient Chief Complaint: reports: Unrefreshed sleep, Snoring, Fatigue, Frequent awakenings at night Date of Onset: YRS Usual bedtime: 10-11 Time it takes to fall asleep: 5-10MIN Snores at night: Yes Observed to quit breathing while asleep: No Sleeps alone due to snoring: No Number of times waking at night: 3-5 Reasons for waking at night: reports: Pain, Bathroom. denies: Choking, Snoring, Gasping for air Toss, Turn, or Twitch while sleeping: Yes Recalls having dreams: Yes Usually gets out of bed at: 8-9AM Feels refreshed in the morning: No Morning headache: No Sleepy or fatigued during the day: Yes Ever fallen asleep while driving: No Takes day naps: No Dreams during day naps: No Prior sleep studies: No Additional HPI information: I had the pleasure of seeing FANI SALAZAR today regarding the possibility of him having a sleep disorder. His current complaints are unrefreshed sleep, snoring, fatigue and frequent night awakenings. He saw his PCP who recommended he come in for evaluation. He states he is up a lot at night due to enlarged prostate which gets him up several times a night. He is scheduled for surgery to reduce prostate. He states some mornings are better than others and does not always wake up feeling rested. He states that he snores occasionally but his has not noted pauses in breathing. - Parasomnia Symptoms Ever been unable to move upon waking from sleep: No Walks in sleep: No Talks in sleep: Yes (occasionally ) Ever acted out dreams in sleep: No Ever felt weak in the knees when startled or emotional: No Bothered by creepy, crawly, restless sensations in legs: No Problems with memory or concentration: Yes (can't remember right away) Subjective Initial [place] Sleepiness Scale score: 7 (09/25/22) Past Medical History Past Medical History: reports: Arthritis, Emphysema, GERD Social History The patient's occupation is a CONTRACTOR. Patient is and lives in [place]. Have you smoked in the past 12 months: No Years of smokin Quit date: 2002 Alcohol use: Yes Alcohol amount and frequency: 1-2 SPECIAL OCCASION Caffeine use: Yes Caffeine amount and frequency: 6 DAILY Family History Family history of sleep disordered breathing: No Allergies and Home Medications Known drug allergies: No Drug allergies reviewed: Yes Home medication list reviewed: Yes (See updated list in EMR) Allergy and home medication list: Medications: Omeprazole Tylenol, prn Spiriva Fluticasone Tamsulosin Finasteride Albuterol Review of Systems Cardiovascular: denies: high blood pressure Respiratory: reports: shortness of breath, sputum production Gastrointestinal: reports: heartburn, difficulty swallowing, diarrhea Urinary: reports: frequency Neurological: reports: gait or balance problems. denies: headaches, seizure Psychiatric: denies: anxiety, depression Ear/Nose/Throat: reports: wisdom teeth removed. denies: tonsillectomy Musculoskeletal: reports: joint pain, neck pain, back pain, mobility problems Immunologic: denies: allergies to food or environment Physical Exam Vital signs obtained and entered by: AARON Geller MA Blood Pressure: 126/70 (LEFT ARM) Cuff size: regular Heart Rate: 79 O2 Saturation: 96 Height: 5 ft 8 in Weight: 182 lb 3.2 oz Body Mass Index: 27.7 BMI Classification: Overweight Neck circumference: 15.75 Mouth and throat: narrow oropharynx Soft palate: long Hard palate: normal Uvula: normal Uvula visualization: 25% Mallampati Class III Tongue: normal in size Tonsils: small Neck: normal w/o lymphadenopathy or thyromegaly Heart: regular rate and rhythm Lungs: clear bilaterally Impression and Plan 1. Suspected Obstructive Sleep Apnea-Hypopnea Syndrome, as suggested by a history of loud and irregular snoring, frequent awakening during the night and unrefreshed sleep. Narrow oropharynx and obesity are common predisposing factors for obstructive sleep apnea-hypopnea syndrome. I recommend proceeding to polysomnography to confirm the diagnosis and to assess severity. Patient is scheduled for surgery for his prostate in about a month. He does not feel that he needs to do a sleep study at this time. He wants to see how things go after his surgery. I reviewed with patient that we will have to order the sleep study within 6 months of his appointment. He voiced understanding and will call us if he changes his mind about doing the sleep study. The pathophysiology of obstructive sleep apnea-hypopnea syndrome was discussed with the patient and health risks of cardiovascular and cerebrovascular disease if not treated. Risks of drowsy driving discussed in detail and patient advised to avoid long distance driving and to ticket puller at the first sign of drowsiness. * Patient declined sleep study at this time * Schedule polysomnography if patient calls with choice to move forward * Attempt to lose weight. * Return for follow-up as needed or after the sleep study if he calls back to schedule. Counseling Topics: Weight loss health impact Visit Type: In Office Time Spent with Patient (minutes): 34 Provider Statement: I spent 100% of the Face to Face Visit with the patient with greater than 50% spent counseling the patient and coordination of care.
== END 2022-09-28 10:28 | disposition home or self-care (01) ==
LOC: SC 10:27
PROVIDERS: ATTEND Nurse Practitioner Family
DX: R53.83 Other fatigue (principal); G47.8 Other sleep disorders; R06.83 Snoring; Z87.891 Personal history of nicotine dependence; E66.3 Overweight; Z68.27 Body mass index [BMI] 27.0-27.9, adult
CPT/HCPCS: 99203; G0463; 99212

== ENCOUNTER 2022-10-31 14:04 | Outpatient (CLI) | payer MEDICARE, BC, OTHER ==
--- NOTE | 2022-10-31 10:40 | XRAY Report ---
PROCEDURE: Shoulder 3 View BILAT INDICATIONS: BILAT SHOULDER PAIN TECHNIQUE: 4 views of each shoulder were acquired. COMPARISON: X-ray left shoulder, 04/13/2020. X-ray shoulders bilateral, 04/09/2017. FINDINGS: Right: No fractures or dislocations. Severe glenohumeral joint degeneration and moderate acromioclav icular joint degeneration. There is os acromiale . Superior migration of humeral head, likely seconda ry to chronic rotator cuff tendon tear. No suspicious bony lesions. Visualized ribs appear intact. Multiple intra-articular bodies are noted. Left: No fractures or dislocations. Severe glenohumeral joint degeneration and moderate acromioclavi cular joint degeneration. There is os acromiale . No suspicious bony lesions. Visualized ribs appear intact. No suspicious soft tissue calcifications. IMPRESSION: 1. Severe degenerative joint disease bilaterally, right greater than left. 2. Os acromiale bilaterally. 3. Superior migration of the right humeral head, likely secondary to chronic rotator cuff tendon tear . If clinically indicated, MRI would be helpful. 4. Intra-articular bodies in the right glenohumeral joint. Reviewed by: Bianca Craven MD on 10/31/2022 10:38 AM PDT Approved by: Bianca Craven MD on 10/31/2022 10:38 AM PDT Station ID: [id number]
== END 2022-10-31 14:07 | disposition home or self-care (01) ==
LOC: DI.WOS 14:04
PROVIDERS: ATTEND Physician Assistant Surgical
DX: M19.012 Primary osteoarthritis, left shoulder (principal); M19.011 Primary osteoarthritis, right shoulder; M24.011 Loose body in right shoulder

== ENCOUNTER 2022-12-15 08:00 | Outpatient (CLI) | payer MEDICARE, BC, OTHER | END 2022-12-15 23:59 | disposition home or self-care (01) | LOC: LAB.N 08:00 | PROVIDERS: ATTEND Physician Assistant | DX: Z20.822 Contact with and (suspected) exposure to COVID-19 (principal) ==

== ENCOUNTER 2022-12-21 12:45 | Outpatient (CLI) | payer MEDICARE, BC, OTHER ==
--- NOTE | 2022-12-21 16:22 | XRAY Report ---
PROCEDURE: Chest 2 View X-Ray INDICATIONS: COPD TECHNIQUE: 2 views of the chest were acquired. COMPARISON: X-ray chest, 03/11/2022. FINDINGS: Surgical changes and devices: None. Lungs and pleura: Right upper lobe scars and atelectasis. Small right pleural effusion. No pneumotho rax. Mediastinum: Mediastinal contours appear normal. Heart size is normal. Bones and chest wall: No suspicious bony lesions. Overlying soft tissues appear unremarkable. IMPRESSION: 1. Small right perfusion. 2. Right upper lobe scars and atelectasis. Reviewed by: Bianca Craven MD on 12/21/2022 4:21 PM PDT Approved by: Bianca Craven MD on 12/21/2022 4:21 PM PDT Station ID: [id number]
== END 2022-12-21 12:46 | disposition home or self-care (01) ==
LOC: DI 12:45
PROVIDERS: ATTEND Physician Assistant
DX: J44.9 Chronic obstructive pulmonary disease, unspecified (principal); J90 Pleural effusion, not elsewhere classified; J98.11 Atelectasis

== ENCOUNTER 2023-01-12 19:33 | Outpatient (CLI) | payer MEDICARE, BC, OTHER | END 2023-01-12 19:34 | disposition home or self-care (01) | LOC: SC 19:33 | PROVIDERS: ATTEND Nurse Practitioner Family | DX: G47.33 Obstructive sleep apnea (adult) (pediatric) (principal); G47.61 Periodic limb movement disorder; E66.3 Overweight; Z68.27 Body mass index [BMI] 27.0-27.9, adult | CPT/HCPCS: 95810 ==

== ENCOUNTER 2023-02-01 15:34 | Outpatient (CLI) | payer MEDICARE, BC, OTHER ==
--- NOTE | 2023-02-01 16:03 | Sleep Patient Instructions ---
Sleep Center Visit Summary - Patient Visit Information Reason for Visit: Sleep study followup - Patient Instructions Instructions Attached: CPAP, CPAP Dc Additional Instructions: You are being started on CPAP therapy with pressure setting at 4-15 cmH2O. You will need to call the sleep care office to set up your follow up once you have your APAP machine and we will schedule a visit to check compliance and response to therapy at that time. You may call the office with any concerns about pressure feeling too low or too much for adjustment, if needed. You should contact DME for any questions or concerns about mask or equipment. Please follow up in the sleep care office one month after obtaining new CPAP. - Clinic Information Contact: [facility] [address] [place] [address] [email or web address] T: [phone]
--- NOTE | 2023-02-01 16:10 | SLEEP CARE CONSULTATION ---
Information from patient questionnaire entered by Taya Payne. I have reviewed and concur with the information entered by Taya Payne. This document represents the service I personally performed and the decisions made by me, Erin Christie ARNP. History of Present Illness Service Date and Time: 02/01/2023 1534 Accompanied by: Spouse Initial [place] Sleepiness Scale score: 7 (09/25/22) Current [place] Sleepiness Scale score: 4 (02/02/23) Additional HPI information: FANI SALAZAR returns with spouse for follow up and results of the recently performed polysomnography. Sleep study showed severe obstructive sleep apnea with an AHI of 41.2 and sesar oxygen saturation of 79%. He also had severe periodic leg movements of sleep that did contribute to sleep fragmentation. I explained the pathophysiology behind obstructive sleep apnea. We then spent quite a bit of time discussing different treatment options. For mild obstructive sleep apnea, surgery and oral appliance are alternatives to nasal CPAP therapy but in moderate or severe cases, nasal CPAP is the most effective and reliable treatment. I reviewed the impact of weight changes on sleep apnea and strongly recommended losing weight. After some discussion, the patient opted to go with the nasal CPAP therapy. Nasal autoCPAP set at 4-15 cmH20 will be ordered with rationale explained. A manual titration study will be ordered if unable to find optimal pressure with office adjustments. I explained how CPAP machine works and what to expect when using the machine. Using CPAP every night in order to get used to it was emphasized. Patient advised to put CPAP mask on before getting into bed so as not to fall asleep without CPAP. To assist acclimation to CPAP use, it could also be used for a short time during day while reading or watching TV. The patient was instructed to call the CPAP supplier to discuss any mechanical problem that may occur. If the mask given is uncomfortable or is difficult to keep on through the night even with adjustment, contact the CPAP supplier as many will replace with another mask style if notified before 30 days. If snoring or perceives is not getting enough air or too much air from the machine, notify this office. Patient was cautioned about risks of drowsy driving until sleepiness symptoms resolve. Sleep Study - Results Type of Sleep Study: Polysomnography (COMPLETED 01/12/23) Prior sleep studies: No Polysomnography/Home Sleep Study results: IMPRESSION: The quality of the study is good. The patient had reduced sleep efficiency. The sleep architecture was abnormal for sleep fragmentation and lack of slow wave sleep (N3). Respiratory monitoring showed severe obstructive sleep apnea-hypopnea (AHI = 41.2) associated with frequent arousals, oxyhemoglobin desaturation and moderate hypoxia (sesar oxygen saturation of 79%). The patient only slept supine during this study (supine AHI = 41.2; non-supine = 0.00). Snore was light to loud in intensity. There was severe periodic leg movement of sleep contributing to the sleep fragmentation. Cardiac rhythm was normal sinus rhythm without significant arrhythmia. No abnormal behavior (parasomnia) observed during the night. Allergies and Home Medications Known drug allergies: No Drug allergies reviewed: Yes Home medication list reviewed: Yes (no changes) Allergy and home medication list: Allergies No Known Drug Allergies Allergy (Verified 01/31/23 15:04) Review of Systems Review of systems same as previous: Yes (no changes) Physical Exam Vital signs obtained and entered by: TAYA Geller MA Blood Pressure: 118/62 (LEFT ARM) Cuff size: regular Heart Rate: 76 O2 Saturation: 94 Height: 5 ft 8 in Weight: 184 lb 3.2 oz Body Mass Index: 28.0 BMI Classification: Overweight Impression and Plan 1. Obstructive Sleep Apnea-Hypopnea Syndrome, severe, with lowest oxygen saturation of 79%. Obviously this is the cause of the patients symptoms of unrefreshed sleep, and excessive daytime sleepiness. Positive pressure therapy could benefit emphysema and gastric reflux. As mentioned above, the patient will be started on nasal autoCPAP therapy with pressure set at 4-15 cmH2O. Compliance guidelines also reviewed. A copy of compliance guidelines will be given for reference at check out. Because the apnea is more severe supine, I instructed to avoid sleeping supine using pillow positioning until able to start CPAP use. 2. Hypoxemia, moderate, with a sesar oxygen saturation of 79% and 69.6 minutes spent under 90%. His baseline oxygen saturation was normal with an average oxygen saturation of 91%. 3. Periodic limb movement, severe, that did not fragment patients sleep. Periodic limb movement of sleep (PLMS) is characterized by episodes of repetitive limb movements that occur during sleep and usually involve the lower limbs. The etiology is unknown. Caffeine can aggravate PLMS and should be avoided. Sleep hygiene methods can also improve sleep as well as lifestyle changes such as regular exercise. Patient was advised that no treatment is needed at this time. If symptoms increase, then further evaluation is indicated. * Nasal auto CPAP therapy, pressure at 4-15 cm H2O. * Attempt to lose weight. * Avoid alcohol consumption near bedtime. * Avoid supine sleep until using CPAP. * The patient is again cautioned about driving until sleepiness completely resolves. * Return one month after CPAP obtained. I will assess response to therapy and compliance at that time. Counseling Topics: Weight loss health impact Visit Type: In Office Time Spent with Patient (minutes): 28 Provider Statement: I spent 100% of the Face to Face Visit with the patient with greater than 50% spent counseling the patient and coordination of care.
[2023-02-01 16:29] VITALS: BP 118/62
== END 2023-02-01 15:35 | disposition home or self-care (01) ==
LOC: SC 15:34
PROVIDERS: ATTEND Nurse Practitioner Family
DX: G47.33 Obstructive sleep apnea (adult) (pediatric) (principal); R09.02 Hypoxemia; G47.61 Periodic limb movement disorder; E66.3 Overweight; Z68.28 Body mass index [BMI] 28.0-28.9, adult
CPT/HCPCS: 99213; G0463; 99212

== ENCOUNTER 2023-03-21 08:00 | Outpatient (CLI) | payer MEDICARE, BC, OTHER ==
[2023-03-21 18:39] LABS: INFLUENZA A- RESP PCR PANEL NOT DETECTED; INFLUENZA B - RESP PCR PANEL NOT DETECTED; RSV- RESP PCR PANEL NOT DETECTED; SARS-CoV-2 -RESP PCR PANEL NOT DETECTED
== END 2023-03-21 23:59 | disposition home or self-care (01) ==
LOC: LAB.N 08:00
PROVIDERS: ATTEND Physician Assistant
DX: R53.83 Other fatigue (principal); R05.1 Acute cough; Z20.822 Contact with and (suspected) exposure to COVID-19
CPT/HCPCS: 87637

== ENCOUNTER 2023-04-11 09:12 | Outpatient (CLI) | payer MEDICARE, BC, OTHER ==
--- NOTE | 2023-04-11 09:45 | Sleep Patient Instructions ---
Sleep Center Visit Summary - Patient Visit Information Reason for Visit: First compliance followup for PAP therapy - Patient Instructions Additional Instructions: You were here for follow up of CPAP therapy. You will be continued on CPAP therapy with pressure at 4-8 cmH2O. You should follow up with sleep care in 1-2 months. You may contact us sooner for any questions or concerns. - Clinic Information Contact: [facility] [address] [place] [id number] [email or web address] T: [phone]
--- NOTE | 2023-04-11 09:50 | SLEEP CARE CONSULTATION ---
Information from patient questionnaire entered by Aaron Payne. I have reviewed and concur with the information entered by Aaron Payne. This document represents the service I personally performed and the decisions made by , Erin Christie ARNP. History of Present Illness Service Date and Time: 04/11/2023911 Previous diagnosis: Severe, Obstructive Sleep Apnea-Hypopnea Syndrome AHI: 41.2 (2022) Reason for follow up: first compliance Equipment type: CPAP (RESMED Airsense 11; s/u 01/2023) Equipment obtained from: Other ([facility]; getting supplies) Mask style: Nasal pillows Backup mask available: Yes (other mask) Last cushion change: 1.5 weeks Prior sleep studies: No Type of Sleep Study: Polysomnography (COMPLETED 01/12/23) HPI additional information: FANI SALAZAR was diagnosed to have severe, AHI 41.2, obstructive sleep apnea- hypopnea syndrome and returned today for CPAP therapy first compliance follow- up. Sleep Study - Results Type of Sleep Study: Polysomnography (COMPLETED 01/12/23) Prior sleep studies: No CPAP Compliance Data - Data Reviewed with Patient Average duration of nightly device use: 5 HRS 13 MINS Compliance rate %: 53 (03/09/23-04/07/23; 22/30 days used) Current pressure setting (cmH2O): 4-8 (median 6.8, avg 7.9, max 7.9) Average residual AHI: 2.1 Central apnea: 0.7 Obstructive apnea: 1 Hypopnea: 0.4 Average large leak: 1.5 L/min Subjective Missed days of use due to: reports: other (just don't want to use it) Patient concerns: reports: air blowing in eyes, mask leak noise. denies: aerophagia, mask discomfort, condensation in mask/hose, nasal congestion, dry mouth, nose, throat, epistaxis Observed to snore while using device: No Current pressure setting perceived as: comfortable (occ) On therapy, patient: denies: drowsiness while driving, other (not feeling difference yet with sleep ) Initial [place] Sleepiness Scale score: 7 (09/25/22) Current [place] Sleepiness Scale score: 5 (04/11/23) Allergies and Home Medications Known drug allergies: No Drug allergies reviewed: Yes Home medication list reviewed: Yes (no changes) Allergy and home medication list: Allergies No Known Drug Allergies Allergy (Verified 04/10/23 13:30) Review of Systems Review of systems same as previous: Yes (N/A) Physical Exam Vital signs obtained and entered by: AARNO Geller MA Blood Pressure: 114/63 (RIGHT) Cuff size: wrist Heart Rate: 79 O2 Saturation: 96 Height: 5 ft 8 in Weight: 187 lb 6.4 oz Body Mass Index: 28.5 BMI Classification: Overweight Impression and Plan 1. Obstructive Sleep Apnea-Hypopnea Syndrome, severe, with fair treatment compliance and good apnea control. Patient has significant improvement of their sleep apnea and is satisfied with current CPAP therapy. Patient states he does not feel he is getting any improvement of his sleep or energy at this point. His average is around 5 hours a night and his compliance is fair at this time. I encouraged him to use his machine for all sleep and he states he was able to use it all night last night for almost 7 hours. I encouraged him to continue to increase his time in mask to get full benefit of using CPAP. He voiced understanding. We will continue with current CPAP settings. I will have him followup in 1 month to recheck compliance. Patient's apnea severity and rationale for treatment to reduce apnea, improve sleep quality and reduce cardiovascular and cerebrovascular events was reviewed. I also reviewed the benefit of consistent device use of CPAP for emphysema and gastric reflux. 2. Overweight, unspecified. Currently patients BMI is 28.5. Obesity increases the risk of apnea, CPAP pressure requirements and overall health risks especial ly cardiovascular and diabetes. Thus patient is advised to lose weight. * Continue auto CPAP pressure at 4-8 cmH2O * Notify me if snoring with mask or feeling that the pressure is too much or too little * Attempt to lose weight * Call this office if any problems using CPAP * Return for follow up in 1-2 months, or sooner if concerns arise Counseling Topics: Spare mask, Weight loss health impact Visit Type: In Office Time Spent with Patient (minutes): 26 Provider Statement: I spent 100% of the Face to Face Visit with the patient with greater than 50% spent counseling the patient and coordination of care.
[2023-04-11 09:55] VITALS: BP 114/63; O2SAT 96
== END 2023-04-11 09:13 | disposition home or self-care (01) ==
LOC: SC 09:12
PROVIDERS: ATTEND Nurse Practitioner Family
DX: G47.33 Obstructive sleep apnea (adult) (pediatric) (principal); E66.3 Overweight; Z68.28 Body mass index [BMI] 28.0-28.9, adult
CPT/HCPCS: 99213; G0463; 99212

== ENCOUNTER 2023-06-20 10:50 | Outpatient (CLI) | payer MEDICARE, BC, OTHER ==
--- NOTE | 2023-06-20 11:18 | Sleep Patient Instructions ---
Sleep Center Visit Summary - Patient Visit Information Reason for Visit: 1 month follow-up - Patient Instructions Additional Instructions: You were here for follow up of CPAP therapy. You will be continued on CPAP therapy with pressure at 4-8 cmH2O. You should follow up with sleep care in 3 months. You may contact us sooner for any questions or concerns. - Clinic Information Contact: [facility] [address] [place] [address] [email or web address] T: [phone]
--- NOTE | 2023-06-20 11:24 | SLEEP CARE CONSULTATION ---
Information from patient questionnaire entered by Taya Payne. I have reviewed and concur with the information entered by Taya Payne. This document represents the service I personally performed and the decisions made by , Erin Christie ARNP. History of Present Illness Service Date and Time: 06/20/2023 1050 Previous diagnosis: Severe, Obstructive Sleep Apnea-Hypopnea Syndrome AHI: 41.2 (2022) Reason for follow up: one month (F/U) Equipment type: CPAP (ResMed 11; s/u 01/2023) Equipment obtained from: Other ([facility]; getting supplies) Mask style: Nasal pillows (Mobeetie II) Backup mask available: Yes Last cushion change: 8 days ago Prior sleep studies: No Type of Sleep Study: Polysomnography (COMPLETED 01/12/23) HPI additional information: FANI SALAZAR was diagnosed to have severe, AHI 41.2, obstructive sleep apnea- hypopnea syndrome and returned today for CPAP therapy one month follow-up. Sleep Study - Results Type of Sleep Study: Polysomnography (COMPLETED 01/12/23) Prior sleep studies: No CPAP Compliance Data - Data Reviewed with Patient Average duration of nightly device use: 6 HRS 33 MINS Compliance rate %: 60 (05/19/23-06/17/23) Current pressure setting (cmH2O): 4-8 Average residual AHI: 2.8 Central apnea: 1.2 Obstructive apnea: 1.4 Hypopnea: 0.1 Subjective Missed days of use due to: reports: mask issues, other (still not feeling like he is rested overall) Patient concerns: reports: air blowing in eyes (with the full face mask), dry mouth, nose, throat (dry mouth, not all the time; uses Biotene). denies: aerophagia, mask discomfort, mask leak noise, condensation in mask/hose, nasal congestion, epistaxis Observed to snore while using device: No Current pressure setting perceived as: comfortable (mostly, sometimes too high) On therapy, patient: reports: other. denies: drowsiness while driving Initial [place] Sleepiness Scale score: 7 (09/25/22) Current [place] Sleepiness Scale score: 8 (06/20/23) Allergies and Home Medications Known drug allergies: No Drug allergies reviewed: Yes Home medication list reviewed: Yes (no changes) Allergy and home medication list: Allergies No Known Drug Allergies Allergy (Verified 06/19/23 13:16) Review of Systems Review of systems same as previous: Yes (NO CHANGE) Physical Exam Vital signs obtained and entered by: TAYA Geller MA Blood Pressure: 118/62 (LEFT ARM) Cuff size: regular Heart Rate: 68 O2 Saturation: 91 Height: 5 ft 8 in Weight: 192 lb 9.6 oz Body Mass Index: 29.2 BMI Classification: Overweight Impression and Plan 1. Obstructive Sleep Apnea-Hypopnea Syndrome, severe, with fair treatment compliance and good apnea control. On CPAP therapy, the patient gets up at night less times at night. Fani has been able to bring up his compliance well. He says that he tried the full face but got too many mask leaking into his eyes. He is back using the nasal pillows mask, Mobeetie II. He feels the pressure is good but sometimes will ramp up and be too much. I advised him to ramp the pressure back down at that time to be able to return to sleep and he voiced understanding. I will have him return in 3 months for a recheck. He is trying to increase his exercise and overall health to help improve his sleep now that he can move better. Patient's apnea severity and rationale for treatment to reduce apnea, improve sleep quality and reduce cardiovascular and cerebrovascular events was reviewed. I also reviewed the benefit of consistent device use of CPAP for emphysema and gastric reflux. 2. Overweight, unspecified. Currently patients BMI is 29.2. Obesity increases the risk of apnea, CPAP pressure requirements and overall health risks especially cardiovascular and diabetes. Thus patient is advised to lose weight. * Continue auto CPAP pressure at 4-8 cmH2O * Notify me if snoring with mask or feeling that the pressure is too much or too little * Attempt to lose weight * Call this office if any problems using CPAP * Return for follow up in 3 months, or sooner if concerns arise Counseling Topics: Spare mask, Weight loss health impact Follow up with Sleep Care in: 3 months Visit Type: In Office Time Spent with Patient (minutes): 23 Provider Statement: I spent 100% of the Face to Face Visit with the patient with greater than 50% spent counseling the patient and coordination of care.
[2023-06-20 11:31] VITALS: BP 118/62; O2SAT 91
== END 2023-06-20 10:51 | disposition home or self-care (01) ==
LOC: SC 10:50
PROVIDERS: ATTEND Nurse Practitioner Family
DX: G47.33 Obstructive sleep apnea (adult) (pediatric) (principal); E66.3 Overweight; Z68.29 Body mass index [BMI] 29.0-29.9, adult
CPT/HCPCS: 99213; G0463; 99212

== ENCOUNTER 2023-07-06 09:09 | Outpatient (CLI) | payer MEDICARE, BC, OTHER | END 2023-07-06 09:10 | disposition home or self-care (01) | LOC: DI 09:09 | PROVIDERS: ATTEND Physician Assistant | DX: R53.83 Other fatigue (principal); R06.02 Shortness of breath; J44.9 Chronic obstructive pulmonary disease, unspecified | CPT/HCPCS: 93306 ==

== ENCOUNTER 2023-09-05 10:27 | Outpatient (CLI) | payer MEDICARE, BC, OTHER ==
[2023-09-05 11:58] LABS: BASOPHILS # (AUTO) 0.1 10^3/uL (0.0-0.1); BASOPHILS % (AUTO) 1.3 %; EOSINOPHILS # (AUTO) 0.1 10^3/uL (0.0-0.7); EOSINOPHILS % (AUTO) 2.8 %; HCT - HEMATOCRIT 39.5 % (42.0-52.0); LYMPHOCYTES # (AUTO) 1.3 10^3/uL (1.5-3.5); LYMPHOCYTES % (AUTO) 27.9 %; MEAN CORPUSCULAR HEMOGLOBIN 25.6 pg (27.0-31.0); MEAN CORPUSCULAR HGB CONC 30.4 g/dL (32.0-36.0); MEAN CORPUSCULAR VOLUME 84.4 fL (80.0-94.0); MEAN PLATELET VOLUME 10.7 fL (7.4-11.4); MONOCYTES # (AUTO) 0.5 10^3/uL (0.0-1.0); MONOCYTES % (AUTO) 11.3 %; NEUTROPHILS # (AUTO) 2.6 10^3/uL (1.5-6.6); NEUTROPHILS % (AUTO) 56.5 %; PLT - PLATELET COUNT 277 10^3/uL (130-450); RED BLOOD COUNT 4.68 10^6/uL (4.70-6.10); RED CELL DISTRIBUTION WIDTH 14.4 % (12.0-15.0); WHITE BLOOD COUNT 4.6 x10^3/uL (4.8-10.8)
[2023-09-05 12:35] LABS: THYROID STIMULATING HORMONE 1.99 uIU/mL (0.34-5.60)
[2023-09-05 12:39] LABS: CARBON DIOXIDE - CO2 30 mmol/L (21-32); CHLORIDE 105 mmol/L (101-111); POTASSIUM 4.2 mmol/L (3.5-4.5); SODIUM 140 mmol/L (135-145)
[2023-09-05 12:40] LABS: ALBUMIN 4.1 g/dL (3.2-5.5); ALBUMIN/GLOBULIN RATIO 1.5 (1.0-2.2); ALKALINE PHOSPHATASE 123 IU/L (42-121); ALT ALANINE AMINOTRANSFERASE 12 IU/L (10-60); AST ASPARTATE AMINOTRANSFERASE 18 IU/L (10-42); BILIRUBIN,TOTAL 0.4 mg/dL (0.2-1.0); BUN - BLOOD UREA NITROGEN 16 mg/dL (6-20); CALCIUM 9.4 mg/dL (8.5-10.3); CHOL/HDL RATIO 3.9 (<5.0); CHOLESTEROL 190 mg/dL; GFR - MDRD 73 (>89); GLUCOSE 106 mg/dL (74-104); HDL CHOLESTEROL 49 mg/dL; LDL CHOLESTEROL,CALCULATED 117 mg/dL; LDL/HDL RATIO 2.4 (<3.6); TOTAL PROTEIN 6.8 g/dL (6.4-8.9); TRIGLYCERIDES 118 mg/dL (48-352); VLDL CHOLESTEROL 24 mg/dL
== END 2023-09-05 10:28 | disposition home or self-care (01) ==
LOC: LAB.N 10:27
PROVIDERS: ATTEND Physician Assistant
DX: R06.02 Shortness of breath (principal); R53.83 Other fatigue; E78.5 Hyperlipidemia, unspecified; N40.1 Benign prostatic hyperplasia with lower urinary tract symptoms; N13.8 Other obstructive and reflux uropathy; R97.20 Elevated prostate specific antigen [PSA]
CPT/HCPCS: 36415; 80053; 80061; 83721; 84153; 84443; 85025

== ENCOUNTER 2023-09-20 10:49 | Outpatient (CLI) | payer MEDICARE, BC, OTHER ==
--- NOTE | 2023-09-20 11:20 | Sleep Patient Instructions ---
Sleep Center Visit Summary - Patient Visit Information Reason for Visit: 3-month follow-up - Patient Instructions Additional Instructions: You were here for follow up of CPAP therapy. You will be continued on CPAP therapy with pressure at 4-8 cmH2O. You should follow up with sleep care in 6 months. You may contact us sooner for any questions or concerns. - Clinic Information Contact: [facility] [address] [place] [address] [email or web address] T: [phone]
--- NOTE | 2023-09-20 11:25 | SLEEP CARE CONSULTATION ---
Information from patient questionnaire entered by Taya Payne. I have reviewed and concur with the information entered by Taya Payne. This document represents the service I personally performed and the decisions made by , Erin Christie ARNP. History of Present Illness Service Date and Time: 09/20/2023 1049 Previous diagnosis: Severe, Obstructive Sleep Apnea-Hypopnea Syndrome AHI: 41.2 (2022) Reason for follow up: three month (F/U ) Equipment type: CPAP (ResMed 11; s/u 01/2023) Equipment obtained from: Other ([facility]; getting supplies) Mask style: Nasal pillows (Mclean II) Backup mask available: Yes Last cushion change: 2 weeks Prior sleep studies: No Type of Sleep Study: Polysomnography (COMPLETED 01/12/23) HPI additional information: FANI SALAZAR was diagnosed to have severe, AHI 41.2, obstructive sleep apnea- hypopnea syndrome and returned today for CPAP therapy three month follow-up. Sleep Study - Results Type of Sleep Study: Polysomnography (COMPLETED 01/12/23) Prior sleep studies: No CPAP Compliance Data - Data Reviewed with Patient Average duration of nightly device use: 7 HRS 49 MINS Compliance rate %: 86 (06/20/23-09/17/23; 82/90 days used) Current pressure setting (cmH2O): 4-8 Average residual AHI: 3.2 Central apnea: 1.6 Obstructive apnea: 1.4 Hypopnea: 0.1 Average large leak: 1.5 L/min` Subjective Patient concerns: reports: air blowing in eyes, mask leak noise. denies: aerophagia, mask discomfort, condensation in mask/hose, nasal congestion, dry mouth, nose, throat, epistaxis Observed to snore while using device: No Current pressure setting perceived as: too high (at times) On therapy, patient: reports: sleeping better, awakening more refreshed, being more awake and alert during the day. denies: drowsiness while driving Initial [place] Sleepiness Scale score: 7 (09/25/22) Current [place] Sleepiness Scale score: 5 Allergies and Home Medications Known drug allergies: No Drug allergies reviewed: Yes Home medication list reviewed: Yes (no changes) Allergy and home medication list: Allergies No Known Drug Allergies Allergy (Verified 09/18/23 13:13) Review of Systems Review of systems same as previous: Yes (no changes) Physical Exam Vital signs obtained and entered by: ERIN MAP-C Blood Pressure: 135/69 Cuff size: long (right) Heart Rate: 65 O2 Saturation: 95 Height: 5 ft 8 in Weight: 202 lb 3.2 oz Body Mass Index: 30.7 BMI Classification: Obese Impression and Plan 1. Obstructive Sleep Apnea-Hypopnea Syndrome, severe, with good treatment compliance and good apnea control. On CPAP therapy, the patient has better sleep quality and is more rested overall. Patient has significant improvement of their sleep apnea and is satisfied with current CPAP therapy. He will still occasionally get a surge in pressure that wakes him up and he takes the mask off. He states is not every night and most nights he is able to sleep well with the mask on throughout the night. I discussed with him that if this surge in pressure becomes more prevalent that he may ask his DME to have it serviced to see if there is a problem. He states it is okay for now and he will contact them if needed. Patient's apnea severity and rationale for treatment to reduce apnea, improve sleep quality and reduce cardiovascular and cerebrovascular events was reviewed. I also reviewed the benefit of consistent device use of CPAP for emphysema and gastric reflux. 2. Obesity, unspecified. Currently patients BMI is 30.7. Obesity increases the risk of apnea, CPAP pressure requirements and overall health risks especially cardiovascular and diabetes. Thus patient is advised to lose weight. * Continue auto CPAP pressure at 4-8 cmH2O * Notify me if snoring with mask or feeling that the pressure is too much or too little * Attempt to lose weight * Call this office if any problems using CPAP * Return for follow up in 6 months, or sooner if concerns arise Counseling Topics: Weight loss health impact Follow up with Sleep Care in: 6 months Visit Type: In Office Time Spent with Patient (minutes): 20 Provider Statement: I spent 100% of the Face to Face Visit with the patient with greater than 50% spent counseling the patient and coordination of care.
[2023-09-20 11:34] VITALS: BP 135/69; O2SAT 95
== END 2023-09-20 10:50 | disposition home or self-care (01) ==
LOC: SC 10:49
PROVIDERS: ATTEND Nurse Practitioner Family
DX: G47.33 Obstructive sleep apnea (adult) (pediatric) (principal); E66.9 Obesity, unspecified; Z68.30 Body mass index [BMI] 30.0-30.9, adult
CPT/HCPCS: 99213; G0463; 99212

== ENCOUNTER 2023-10-02 12:08 | Outpatient (CLI) | payer MEDICARE, BC, OTHER | END 2023-10-02 12:09 | disposition home or self-care (01) | LOC: LAB.N 12:08 | PROVIDERS: ATTEND Physician Assistant Medical | DX: R97.20 Elevated prostate specific antigen [PSA] (principal) | CPT/HCPCS: 36415; 84153 ==

== ENCOUNTER 2023-11-17 12:42 | Outpatient (CLI) | payer MEDICARE, BC, OTHER ==
--- NOTE | 2023-11-17 21:33 | Ultrasound Report ---
PROCEDURE: Soft Tissue Head or Neck INDICATIONS: HIST OF THYROID NODULE TECHNIQUE: Real-time scanning was performed of the thyroid gland, with image documentation. COMPARISON: Thyroid ultrasound dated 07/27/2022 FINDINGS: Right: Thyroid lobe measures Size cm, and is homogeneous in echotexture. Left: Thyroid lobe measures Size cm, and is homogenous in echotexture. Isthmus: Size cm thick. Nodule number: One Location: Right superior Size: 0.4 x 0.3 x 0.4 cm. Composition: Solid (2 points). Echogenicity: Hypoechoic (2 points). Shape: wider than tall (0 points). Margins: Smooth (0 points). Echogenic foci: None (0 points). Total points: 4 ACR TI-RADS category: 4 Nodule number: Two Location: Left mid inferior Size: 4.2 x 3.3 x 4.2 cm previously 5.6 x 3.0 x 3.3 cm) Composition: Solid (2 points). Echogenicity: Isoechoic (1 point). Shape: wider than tall (0 points). Margins: Smooth (0 points). Echogenic foci: Punctate echogenic foci (3 points). Total points: 6 ACR TI-RADS category: 4 IMPRESSION: Right and left T4 nodules. The left T4 nodule has decreased in size and was previously b iopsied. Continued sonographic follow-up of the left thyroid nodule recommended. ACR TI-RADS definitions and recommendations: TI-RADS 1 (benign): 0 points. FNA not needed. TI-RADS 2 (not suspicious): 2 points. FNA not needed. TI-RADS 3 (mildly suspicious): 3 points. "FNA if 2.5 cm or larger, follow up if 1.5 cm or larger (at 1, 3, and 5 years). TI-RADS 4 (moderately suspicious): 4-6 points. "FNA if 1.5 cm or larger, follow up if 1 cm or larger (at 1, 2, 3, and 5 years). TI-RADS 5 (highly suspicious): 7 points or more. "FNA if 1 cm or larger, follow up if 0.5 cm or larger (every year for 5 years). Reviewed by: Karla Vargas MD on 11/17/2023 9:32 PM PDT Approved by: Karla Vargas MD on 11/17/2023 9:32 PM PDT Station ID: [id number]
== END 2023-11-17 12:43 | disposition home or self-care (01) ==
LOC: DI 12:42
PROVIDERS: ATTEND Physician Assistant
DX: E04.2 Nontoxic multinodular goiter (principal)

== ENCOUNTER 2023-12-01 12:38 | Outpatient (CLI) | payer MEDICARE, BC, OTHER ==
[2023-12-01 18:47] LABS: BASOPHILS # (AUTO) 0.1 10^3/uL (0.0-0.1); BASOPHILS % (AUTO) 0.9 %; EOSINOPHILS # (AUTO) 0.1 10^3/uL (0.0-0.7); HCT - HEMATOCRIT 38.2 % (42.0-52.0); HGB - HEMOGLOBIN 11.4 g/dL (14.0-18.0); LYMPHOCYTES # (AUTO) 1.3 10^3/uL (1.5-3.5); LYMPHOCYTES % (AUTO) 18.9 %; MEAN CORPUSCULAR HEMOGLOBIN 25.8 pg (27.0-31.0); MEAN CORPUSCULAR HGB CONC 29.8 g/dL (32.0-36.0); MEAN CORPUSCULAR VOLUME 86.4 fL (80.0-94.0); MEAN PLATELET VOLUME 10.1 fL (7.4-11.4); MONOCYTES # (AUTO) 0.7 10^3/uL (0.0-1.0); MONOCYTES % (AUTO) 10.3 %; NEUTROPHILS # (AUTO) 4.7 10^3/uL (1.5-6.6); NEUTROPHILS % (AUTO) 67.6 %; PLT - PLATELET COUNT 304 10^3/uL (130-450); RED BLOOD COUNT 4.42 10^6/uL (4.70-6.10); RED CELL DISTRIBUTION WIDTH 15.2 % (12.0-15.0); WHITE BLOOD COUNT 6.9 x10^3/uL (4.8-10.8)
[2023-12-01 19:21] LABS: CHOL/HDL RATIO 2.4 (<5.0); CHOLESTEROL 113 mg/dL; HDL CHOLESTEROL 48 mg/dL; LDL CHOLESTEROL,CALCULATED 20 mg/dL; LDL/HDL RATIO 0.4 (<3.6); TRIGLYCERIDES 226 mg/dL (48-352); VLDL CHOLESTEROL 45 mg/dL
[2023-12-01 19:41] LABS: ALBUMIN 4.1 g/dL (3.2-5.5); ALBUMIN/GLOBULIN RATIO 1.6 (1.0-2.2); BILIRUBIN,TOTAL 0.3 mg/dL (0.2-1.0); CALCIUM 9.7 mg/dL (8.5-10.3); CREATININE 1.1 mg/dL (0.6-1.3); POTASSIUM 4.7 mmol/L (3.5-4.5); TOTAL PROTEIN 6.7 g/dL (6.4-8.9)
== END 2023-12-01 12:39 | disposition home or self-care (01) ==
LOC: LAB.N 12:38
PROVIDERS: ATTEND Specialist
DX: I25.10 Atherosclerotic heart disease of native coronary artery without angina pectoris (principal); D64.9 Anemia, unspecified
CPT/HCPCS: 36415; 80053; 80061; 83721; 85025

== ENCOUNTER 2024-01-20 17:24 | Emergency (ER) | payer MEDICARE, BC, OTHER ==
--- NOTE | 2024-01-20 18:12 | ED Physician Documentation ---
History of Present Illness - Stated complaint Stated Complaint: WEAKNESS/NAUSEA/VOMIT - Chief complaint Chief Complaint: General - History obtained from History obtained from: Patient - Additonal information Additional information: 78-year-old gentleman with history of COPD presents by private vehicle accompanied by his . He feels like he basically got hit by a truck today, he is sore all over, very tired, coughing a bit with some chills but no measured fevers. He is just very weak and slept a lot last night. PD PAST MEDICAL HISTORY - Past Medical History Past Medical History: Yes Cardiovascular: High cholesterol Respiratory: COPD, Emphysema, Other Neuro: None Endocrine/Autoimmune: None GI: GERD, Other : Benign prostate hypertrophy, Other HEENT: Chronic vision loss Psych: Depression, Post traumatic stress disorder, Claustrophobia Musculoskeletal: Osteoarthritis, Chronic back pain Derm: None Other Past Medical History: postate cancer - Past Surgical History Past Surgical History: Yes General: Colonoscopy Ortho: Spine surgery Cardiovascular: Other - Present Medications Home Medications: Ambulatory Orders Medication Instructions Recorded Confirmed Albuterol [Proventil Hfa] 1 puffs INH Q4HR PRN 04/02/13 01/20/24 Tiotropium [Spiriva] 1 puffs INH DAILY 04/02/13 01/20/24 Finasteride 5 mg PO DAILY 02/22/20 01/20/24 Fluticasone Propion/Salmeterol 1 each NEB BID 02/22/20 01/20/24 [Wixela 100-50 Inhub] Omeprazole 20 mg PO DAILY 02/22/20 01/20/24 Acetaminophen [Tylenol] See Rx Instructions .ROUTE .COMPLEX 09/27/22 01/20/24 Tamsulosin [Flomax] See Rx Instructions .ROUTE .COMPLEX 09/27/22 01/20/24 Amox/Clav 875/125 [Augmentin] 1 each PO Q12H #14 tablet 01/20/24 Azithromycin [Zithromax] 1 tab PO DAILY #4 tab 01/20/24 Pravastatin [Pravachol] 40 mg PO DAILY 01/20/24 01/20/24 traZODone [Desyrel] 100 mg PO HS 01/20/24 01/20/24 - Allergies Allergies/Adverse Reactions: Allergies Allergy/AdvReac Type Severity Reaction Status Date / Time No Known Drug Allergies Allergy Verified 01/20/24 17:54 - Social History Does the pt smoke?: No Smoking Status: Former smoker Does the pt drink ETOH?: Yes Does the pt have substance abuse?: No - Immunizations Immunizations are current?: Yes PD ED PE NORMAL - Vitals Vital signs reviewed: Yes - General General: Alert and oriented X 3, No acute distress - HEENT HEENT: PERRL, EOMI - Neck Neck: Supple, no meningeal sign, No bony TTP - Cardiac Cardiac: RRR, No murmur - Respiratory Respiratory: No respiratory distress, Clear bilaterally - Abdomen Abdomen: Normal bowel sounds, Soft, Other (MILD DIFFUSE TTP) - Derm Derm: No rash - Extremities Extremities: No edema, No calf tenderness / cord - Neuro Neuro: Alert and oriented X 3, Normal speech Eye Opening: Spontaneous Motor: Obeys Commands Verbal: Oriented GCS Score: 15 Results - Vitals Vitals: Vital Signs - 24 hr 01/20/24 01/20/24 01/20/24 17:54 18:30 20:00 Temperature 37.1 C Heart Rate 77 72 71 Respiratory 18 20 20 Rate Blood Pressure 117/56 L 145/72 H 132/60 H O2 Saturation 95 94 93 01/20/24 01/20/24 21:30 23:00 Temperature 37.2 C Heart Rate 69 70 Respiratory 16 16 Rate Blood Pressure 125/75 136/58 H O2 Saturation 93 92 Oxygen O2 Source Room air - EKG (time done) 1806 EKG releavant findings:: EKG personally interpreted by author of this note. Relevant findings are: Rate: Rate (enter#) (88) Rhythm: NSR, LAE [place]: Normal Intervals: Normal MD QRS: Normal Ischemia: Normal ST segments 1914 EKG releavant findings:: EKG personally interpreted by author of this note. Relevant findings are: Rate: Rate (enter#) (71) Rhythm: NSR [place]: Normal Intervals: Normal MD QRS: Normal Ischemia: Normal ST segments - Labs Labs: Laboratory Tests 01/20/24 01/20/24 01/20/24 18:25 18:25 18:25 WBC 23.4 H RBC 4.13 L Hgb 10.3 L Hct 34.1 L MCV 82.6 MCH 24.9 L MCHC 30.2 L RDW 15.0 Plt Count 262 MPV 10.0 Neut # (Auto) Not Reportable Lymph # (Auto) Not Reportable [place] # (Auto) Not Reportable Eos # (Auto) Not Reportable Baso # (Auto) Not Reportable Absolute Nucleated RBC Not Reportable Total Counted 100 Band Neuts % (Manual) 0 Abnorm Lymph % (Manual) 0 Nucleated RBC % Not Reportable Neutrophils # (Manual) 20.1 H Lymphocytes # (Manual) 1.2 L Monocytes # (Manual) 1.9 H Eosinophils # (Manual) 0.2 Basophils # (Manual) 0.0 Differential Comment MANUAL DIFFERENTIAL Platelet Estimate NORMAL (130-450,000) Platelet Morphology NORMAL APPEARANCE RBC Morph Micro Appear NORMAL APPEARANCE Sodium 133 L Potassium 3.9 Chloride 100 L Carbon Dioxide 26 Anion Gap 7.0 BUN 16 Creatinine 1.2 Estimated GFR (MDRD) 59 L Glucose 110 H Lactic Acid 0.9 Calcium 9.2 Magnesium 1.8 Total Bilirubin 0.4 AST 13 ALT 10 Alkaline Phosphatase 102 Total Protein 6.9 Albumin 3.9 Globulin 3.0 Albumin/Globulin Ratio 1.3 Urine Color Urine Clarity Urine pH Ur Specific [place] Urine Protein Urine Glucose (UA) Urine Ketones Urine Occult Blood Urine Nitrite Urine Bilirubin Urine Urobilinogen Ur Leukocyte Esterase Ur Microscopic Review Urine Culture Comments Nasal Adenovirus (PCR) Nasal B. parapertussis DNA (PCR) Nasal Coronavir 229E PCR Nasal Coronavir HKU1 PCR Nasal Coronavir NL63 PCR Nasal Coronavir OC43 PCR Nasal Enterovir/Rhinovir PCR Nasal Influenza B PCR Nasal Influenza A PCR Nasal Parainfluen 1 PCR Nasal Parainfluen 2 PCR Nasal Parainfluen 3 PCR Nasal Parainfluen 4 PCR Nasal RSV (PCR) Nasal B.pertussis DNA PCR Nasal C.pneumoniae (PCR) Cr Human Metapneumo PCR Nasal M.pneumoniae (PCR) Nasal SARS-CoV-2 (PCR) 01/20/24 01/20/24 18:25 19:36 WBC RBC Hgb Hct MCV MCH MCHC RDW Plt Count MPV Neut # (Auto) Lymph # (Auto) [place] # (Auto) Eos # (Auto) Baso # (Auto) Absolute Nucleated RBC Total Counted Band Neuts % (Manual) Abnorm Lymph % (Manual) Nucleated RBC % Neutrophils # (Manual) Lymphocytes # (Manual) Monocytes # (Manual) Eosinophils # (Manual) Basophils # (Manual) Differential Comment Platelet Estimate Platelet Morphology RBC Morph Micro Appear Sodium Potassium Chloride Carbon Dioxide Anion Gap BUN Creatinine Estimated GFR (MDRD) Glucose Lactic Acid Calcium Magnesium Total Bilirubin AST ALT Alkaline Phosphatase Total Protein Albumin Globulin Albumin/Globulin Ratio Urine Color YELLOW Urine Clarity CLEAR Urine pH 6.5 Ur Specific [place] 1.010 Urine Protein NEGATIVE Urine Glucose (UA) NEGATIVE Urine Ketones NEGATIVE Urine Occult Blood NEGATIVE Urine Nitrite NEGATIVE Urine Bilirubin NEGATIVE Urine Urobilinogen 0.2 (NORMAL) Ur Leukocyte Esterase NEGATIVE Ur Microscopic Review NOT INDICATED Urine Culture Comments NOT INDICATED Nasal Adenovirus (PCR) NOT DETECTED Nasal B. parapertussis DNA (PCR) NOT DETECTED Nasal Coronavir 229E PCR NOT DETECTED Nasal Coronavir HKU1 PCR NOT DETECTED Nasal Coronavir NL63 PCR NOT DETECTED Nasal Coronavir OC43 PCR NOT DETECTED Nasal Enterovir/Rhinovir PCR NOT DETECTED Nasal Influenza B PCR NOT DETECTED Nasal Influenza A PCR NOT DETECTED Nasal Parainfluen 1 PCR NOT DETECTED Nasal Parainfluen 2 PCR NOT DETECTED Nasal Parainfluen 3 PCR NOT DETECTED Nasal Parainfluen 4 PCR NOT DETECTED Nasal RSV (PCR) NOT DETECTED Nasal B.pertussis DNA PCR NOT DETECTED Nasal C.pneumoniae (PCR) NOT DETECTED Cr Human Metapneumo PCR NOT DETECTED Nasal M.pneumoniae (PCR) NOT DETECTED Nasal SARS-CoV-2 (PCR) NOT DETECTED - Rads (name of study) CXR 1v -bibasilar pna Relevant Findings:: Final report received, EMP independent interpretation of test PD Medical Decision Making - ED course ED course: This is a 78-year-old gentleman who presents with a fairly acute illness marked by body aches, tiredness and fatigue and coughing. He also has some mild abdominal pain and tenderness. On the face of it, it sounds like kind of a nonspecific viral syndrome such as COVID etc.. That said specific viral testing was negative and he has a significant white count at 23,000. His said he had a similar syndrome a few years ago which necessitated a weeks long hospitalization at [facility] for some sort of pulmonary infection. His white count did normalize in the interim and was normal a month ago on labs. As such as chest x-ray and CAT scan were ordered to look for the source of leukocytosis albeit his examination was fairly unremarkable on both counts. Chest x-ray did demonstrate mild bibasilar opacities which certainly could be consistent with pneumonia and given his overall clinical syndrome that is the most likely running diagnosis. He did have some abdominal tenderness and with the elevated white count I ordered a abdominal CT which is pending on shift change. Signed out to Dr. Cates at 10 PM to follow-up on that. In the interim I did order Rocephin and Zithromax IV for CAP. Departure - Departure Disposition: 01 Home, Self Care Clinical Impression: Pneumonia Condition: Stable Record reviewed to determine appropriate education?: Yes Instructions: ED Pneumonia Adult Prescriptions: Amox/Clav 875/125 [Augmentin] 1 each PO Q12H #14 tablet Azithromycin [Zithromax] 1 tab PO DAILY #4 tab Comments: Your testing today shows that you have pneumonia. The CT scan of the abdomen and pelvis also shows a moderate amount of stool. There was also an irregula rity with the prostate and would recommend follow-up with your primary care Regarding this as you may need further evaluation. I sent your prescriptions for antibiotics to [facility] in [place]. I would also recommend using MiraLAX daily for the next 3 to 5 days To help keep your stools soft and more regular. Return to the emergency department with any worsening symptoms. EXAM: CT/ABPEW ([id number]) PROCEDURE: Abdomen/Pelvis W INDICATIONS: IV only, abd pain CONTRAST: 100 ML OMNI 300 TECHNIQUE: After the administration of intravenous contrast, a CT scan of the abdomen and pelvis was performed. Images were recorded and evaluated at appropriate window settings. Reformats: coronal and sagittal. For radiation dose reduction, the following was used: automated exposure contro l, adjustment of mA and/or kV according to patient size. COMPARISON: 01/18/2022 FINDINGS: Image quality: Diagnostic Lower chest: Bibasilar opacities and atelectasis. No drainable effusions. Small hiatal hernia. Coronary calcifications. Trace pericardial thickening versus fluid. Liver: Unremarkable Gallbladder and biliary system: Unremarkable, nondilated Pancreas: No ductal dilation Spleen: Nonenlarged Adrenals: No discrete nodules Kidneys: No hydronephrosis or calcified obstructing stone. Left renal cyst is present. No complicated or solid lesion requiring follow-up. Subcentimeter lesions are too small to characterize, usually also cysts Vessels and lymph nodes: The main portal vein is patent. No abdominal aortic aneurysm. No pathologic lymph nodes by size criteria. Atherosclerotic calcifications are seen. Bowel and peritoneum: No evidence of small bowel obstruction. There are colonic diverticula. Fecal loading is overall moderate. The appendix is nondilated. Body wall: Small fat-containing umbilical hernia and inguinal hernias Pelvis: Right gluteal lipoma. Bladder appears unremarkable. The prostate is heterogeneous and not well evaluated on CT. Focal enhancement is seen in the left transitional zone. Correlate with PSA and possible MRI if necessary Bones: No acute or suspicious finding. Degenerative changes are present. Endplate deformities, likely related to degenerative changes. IMPRESSION: No acute small bowel obstruction. No pathologic ascites or abscess. Overall moderate fecal loading. Bibasilar pulmonary opacities, likely infectious/inflammatory, with atelectasis. Consider future imaging surveillance to assess for resolution. Forms: PCP List Discharge Date/Time: 01/20/24 23:34
[2024-01-20 18:32] LABS: BASOPHILS % (AUTO) 0.3 %; EOSINOPHILS % (AUTO) 0.5 %; HCT - HEMATOCRIT 34.1 % (42.0-52.0); HGB - HEMOGLOBIN 10.3 g/dL (14.0-18.0); MEAN CORPUSCULAR HEMOGLOBIN 24.9 pg (27.0-31.0); MEAN CORPUSCULAR HGB CONC 30.2 g/dL (32.0-36.0); MEAN CORPUSCULAR VOLUME 82.6 fL (80.0-94.0); MONOCYTES % (AUTO) 8.8 %; NEUTROPHILS % (AUTO) 84.9 %; PLT - PLATELET COUNT 262 10^3/uL (130-450); RED BLOOD COUNT 4.13 10^6/uL (4.70-6.10); WHITE BLOOD COUNT 23.4 x10^3/uL (4.8-10.8)
[2024-01-20 18:34] LABS: ABNORMAL LYMPHS % (MANUAL) 0 %; BAND NEUTROPHILS % (MANUAL) 0 %
[2024-01-20] MEDS: ONDANSETRON 4 MG/2 ML VIAL IVP STA (18:34)
[2024-01-20] MEDS: SODIUM CHLORIDE 0.9% 1,000 ML IV STA (18:35)
[2024-01-20 18:48] LABS: ALBUMIN 3.9 g/dL (3.2-5.5); ALBUMIN/GLOBULIN RATIO 1.3 (1.0-2.2); BILIRUBIN,TOTAL 0.4 mg/dL (0.2-1.0); CALCIUM 9.2 mg/dL (8.5-10.3); CREATININE 1.2 mg/dL (0.6-1.3); MAGNESIUM 1.8 mg/dL (1.7-2.3); POTASSIUM 3.9 mmol/L (3.5-4.5); TOTAL PROTEIN 6.9 g/dL (6.4-8.9)
[2024-01-20 18:49] LABS: EOSINOPHILS # (MANUAL) 0.2 10^3/uL (0-0.7); LYMPHOCYTES # (MANUAL) 1.2 10^3/uL (1.5-3.5); LYMPHOCYTES % (MANUAL) 5 %; MONOCYTES # (MANUAL) 1.9 10^3/uL (0.0-1.0); NEUTROPHILS # (MANUAL) 20.1 10^3/uL (1.5-6.6); PLATELET ESTIMATE, MANUAL NORMAL (130-450,000) (NORMAL); PLATELET MORPHOLOGY NORMAL APPEARANCE (NORMAL); RBC MORPHOLOGY (MULTIPLE) NORMAL APPEARANCE (NORMAL)
[2024-01-20 18:50] LABS: DIFFERENTIAL COMMENT MANUAL DIFFERENTIAL
[2024-01-20 19:33] LABS: B. PARAPERTUSSIS- RESP PCR PAN NOT DETECTED; B. PERTUSSIS- RESP PCR PANEL NOT DETECTED; C. PNEUMONIAE- RESP PCR PANEL NOT DETECTED; CORONAVIRUS 229E-RESP PCR NOT DETECTED; CORONAVIRUS HKU1-RESP PCR NOT DETECTED; CORONAVIRUS NL63-RESP PCR NOT DETECTED; CORONAVIRUS OC43-RESP PCR NOT DETECTED; HUMAN METAPNEUMOVIRUS NOT DETECTED; INFLUENZA A- RESP PCR PANEL NOT DETECTED; INFLUENZA B - RESP PCR PANEL NOT DETECTED; M. PNEUMONIAE- RESP PCR PANEL NOT DETECTED; PARAINFLUENZA VIRUS 1 NOT DETECTED; PARAINFLUENZA VIRUS 2 NOT DETECTED; PARAINFLUENZA VIRUS 3 NOT DETECTED; PARAINFLUENZA VIRUS 4 NOT DETECTED; RHINOVIRUS/ENTEROVIRUS NOT DETECTED; RSV- RESP PCR PANEL NOT DETECTED; SARS-CoV-2 -RESP PCR PANEL NOT DETECTED
[2024-01-20 19:43] LABS: BILIRUBIN,URINE NEGATIVE (NEGATIVE); GLUCOSE, URINE (UA) NEGATIVE (NEGATIVE); KETONES,URINE (UA) NEGATIVE (NEGATIVE); LEUKOCYTE ESTERASE, URINE NEGATIVE (NEGATIVE); NITRITE,URINE NEGATIVE (NEGATIVE); OCCULT BLOOD,URINE NEGATIVE (NEGATIVE); PH,URINE 6.5 PH (5.0-7.5); PROTEIN,URINE NEGATIVE (NEGATIVE); UROBILINOGEN,URINE 0.2 (NORMAL) E.U./dL (NORMAL)
[2024-01-20 19:44] LABS: CLARITY,URINE CLEAR (CLEAR)
--- NOTE | 2024-01-20 21:34 | XRAY Report ---
PROCEDURE: Chest 1V INDICATIONS: Cough and leukocytosis TECHNIQUE: One view of the chest was acquired. COMPARISON: 12/21/2022 FINDINGS: Surgical changes and devices: None. Lungs and pleura: Mild bibasilar opacities, and likely bronchial wall thickening. Low lung volumes. No drainable effusions. Mediastinum: Normal heart size Bones and chest wall: Degenerative changes. IMPRESSION: Mild bibasilar opacities, with peribronchial cuffing likely bronchitis, aspiration, and/or atelectasi s. Low lung volumes. Consider future imaging surveillance to assess for resolution. Reviewed by: Geoffrey Ambriz MD on 01/20/2024 9:33 PM PDT Approved by: Geoffrey Ambriz MD on 01/20/2024 9:33 PM PDT Station ID: [id number]
[2024-01-20] MEDS ORDERED: iohexoL-300 100 ML VIAL ONE (21:42)
[2024-01-20] MEDS: cefTRIAXone 1 GM VIAL IVP STA (22:02)
[2024-01-20] MEDS: AZITHROMYCIN INJ 500 MG in SODIUM CHLORIDE 0.9% 250 ML IV STA (22:08)
[2024-01-20] MEDS: iohexoL-300 100 ML VIAL IVP ONE (22:48)
--- NOTE | 2024-01-20 22:59 | CT Report ---
PROCEDURE: Abdomen/Pelvis W INDICATIONS: IV only, abd pain CONTRAST: 100 ML OMNI 300 TECHNIQUE: After the administration of intravenous contrast, a CT scan of the abdomen and pelvis was performed. Images were recorded and evaluated at appropriate window settings. Reformats: coronal and sagittal. F or radiation dose reduction, the following was used: automated exposure control, adjustment of mA and /or kV according to patient size. COMPARISON: 01/18/2022 FINDINGS: Image quality: Diagnostic Lower chest: Bibasilar opacities and atelectasis. No drainable effusions. Small hiatal hernia. Rand ry calcifications. Trace pericardial thickening versus fluid. Liver: Unremarkable Gallbladder and biliary system: Unremarkable, nondilated Pancreas: No ductal dilation Spleen: Nonenlarged Adrenals: No discrete nodules Kidneys: No hydronephrosis or calcified obstructing stone. Left renal cyst is present. No complicated or solid lesion requiring follow-up. Subcentimeter lesions are too small to characterize, usually al so cysts Vessels and lymph nodes: The main portal vein is patent. No abdominal aortic aneurysm. No pathologic lymph nodes by size criteria. Atherosclerotic calcifications are seen. Bowel and peritoneum: No evidence of small bowel obstruction. There are colonic diverticula. Fecal lo ading is overall moderate. The appendix is nondilated. Body wall: Small fat-containing umbilical hernia and inguinal hernias Pelvis: Right gluteal lipoma. Bladder appears unremarkable. The prostate is heterogeneous and not well evaluated on CT. Focal enhancement is seen in the left tra nsitional zone. Correlate with PSA and possible MRI if necessary Bones: No acute or suspicious finding. Degenerative changes are present. Endplate deformities, likely related to degenerative changes. IMPRESSION: No acute small bowel obstruction. No pathologic ascites or abscess. Overall moderate fecal loading. Bibasilar pulmonary opacities, likely infectious/inflammatory, with atelectasis. Consider future imag ing surveillance to assess for resolution. Other findings above. Reviewed by: Geoffrey Ambriz MD on 01/20/2024 10:58 PM PDT Approved by: Geoffrey Ambriz MD on 01/20/2024 10:58 PM PDT Station ID: [id number]
--- NOTE | 2024-01-20 23:22 | ED Physician Documentation ---
ED Addendum - Addendum Addendum: 01/20/24 23:20 Patient care assumed at shift change pending CT results and reevaluation. CT scan of the abdomen and pelvis does not show any significant findings other than moderate fecal burden. There were findings to suggest pneumonia patient has already received Rocephin and azithromycin. He is feeling better and would like to go home. Vital signs are stable. As patient has a history of COPD will have patient on azithromycin and Augmentin. Counseled on concerning symptoms to return for. EXAM: CT/ABPEW ([id number]) PROCEDURE: Abdomen/Pelvis W INDICATIONS: IV only, abd pain CONTRAST: 100 ML OMNI 300 TECHNIQUE: After the administration of intravenous contrast, a CT scan of the abdomen and pelvis was performed. Images were recorded and evaluated at appropriate window settings. Reformats: coronal and sagittal. For radiation dose reduction, the following was used: automated exposure control, adjustment of mA and/or kV according to patient size. COMPARISON: 01/18/2022 FINDINGS: Image quality: Diagnostic Lower chest: Bibasilar opacities and atelectasis. No drainable effusions. Small hiatal hernia. Coronary calcifications. Trace pericardial thickening versus fluid. Liver: Unremarkable Gallbladder and biliary system: Unremarkable, nondilated Pancreas: No ductal dilation Spleen: Nonenlarged Adrenals: No discrete nodules Kidneys: No hydronephrosis or calcified obstructing stone. Left renal cyst is present. No complicated or solid lesion requiring follow-up. Subcentimeter lesions are too small to characterize, usually also cysts Vessels and lymph nodes: The main portal vein is patent. No abdominal aortic an eurysm. No pathologic lymph nodes by size criteria. Atherosclerotic calcifications are seen. Bowel and peritoneum: No evidence of small bowel obstruction. There are colonic diverticula. Fecal loading is overall moderate. The appendix is nondilated. Body wall: Small fat-containing umbilical hernia and inguinal hernias Pelvis: Right gluteal lipoma. Bladder appears unremarkable. The prostate is heterogeneous and not well evaluated on CT. Focal enhancement is seen in the left transitional zone. Correlate with PSA and possible MRI if necessary Bones: No acute or suspicious finding. Degenerative changes are present. Endplate deformities, likely related to degenerative changes. IMPRESSION: No acute small bowel obstruction. No pathologic ascites or abscess. Overall moderate fecal loading. Bibasilar pulmonary opacities, likely infectious/inflammatory, with atelectasis. Consider future imaging surveillance to assess for resolution. Departure - Departure Disposition: 01 Home, Self Care Clinical Impression: Pneumonia Condition: Stable Instructions: ED Pneumonia Adult Prescriptions: Amox/Clav 875/125 [Augmentin] 1 each PO Q12H #14 tablet Azithromycin [Zithromax] 1 tab PO DAILY #4 tab Comments: Your testing today shows that you have pneumonia. The CT scan of the abdomen and pelvis also shows a moderate amount of stool. There was also an irregularity with the prostate and would recommend follow-up with your primary care Regarding this as you may need further evaluation. I [facility] [place]. I would also recommend using MiraLAX daily for the next 3 to 5 days To help keep your stools soft and more regular. Return to the emergency department with any worsening symptoms. EXAM: [id number] CT/ABPEW ([id number]) PROCEDURE: Abdomen/Pelvis W INDICATIONS: IV only, abd pain CONTRAST: 100 ML OMNI 300 TECHNIQUE: After the administration of intravenous contrast, a CT scan of the abdomen and pelvis was performed. Images were recorded and evaluated at appropriate window settings. Reformats: coronal and sagittal. For radiation dose reduction, the following was used: automated exposure control, adjustment of mA and/or kV according to patient size. COMPARISON: 01/18/2022 FINDINGS: Image quality: Diagnostic Lower chest: Bibasilar opacities and atelectasis. No drainable effusions. Small hiatal hernia. Coronary calcifications. Trace pericardial thickening versus fluid. Liver: Unremarkable Gallbladder and biliary system: Unremarkable, nondilated Pancreas: No ductal dilation Spleen: Nonenlarged Adrenals: No discrete nodules Kidneys: No hydronephrosis or calcified obstructing stone. Left renal cyst is present. No complicated or solid lesion requiring follow-up. Subcentimeter lesions are too small to characterize, usually also cysts Vessels and lymph nodes: The main portal vein is patent. No abdominal aortic aneurysm. No pathologic lymph nodes by size criteria. Atherosclerotic calcifications are seen. Bowel and peritoneum: No evidence of small bowel obstruction. There are colonic diverticula. Fecal loading is overall moderate. The appendix is nondilated. Body wall: Small fat-containing umbilical hernia and inguinal hernias Pelvis: Right gluteal lipoma. Bladder appears unremarkable. The prostate is heterogeneous and not well evaluated on CT. Focal enhancement is seen in the left transitional zone. Correlate with PSA and possible MRI if necessary Bones: No acute or suspicious finding. Degenerative changes are present. Endplate deformities, likely related to degenerative changes. IMPRESSION: No acute small bowel obstruction. No pathologic ascites or abscess. Overall moderate fecal loading. Bibasilar pulmonary opacities, likely infectious/inflammatory, with atelectasis. Consider future imaging surveillance to assess for resolution. Forms: PCP List Discharge Date/Time: 01/20/24 23:34
[2024-01-20 23:24] VITALS: BP 136/58; O2SAT 92
== END 2024-01-20 23:34 | disposition home or self-care (01) ==
LOC: ED 17:24
DX: J18.9 Pneumonia, unspecified organism (principal); R10.819 Abdominal tenderness, unspecified site; R93.89 Abnormal findings on diagnostic imaging of other specified body structures; J44.9 Chronic obstructive pulmonary disease, unspecified; Z87.891 Personal history of nicotine dependence
CPT/HCPCS: 36415; 71045; 74177; 80053; 81003; 83605; 83735; 85025; 87633; 93005; 96365; 96375; 99284; Q9967; 81001; 87086

== ENCOUNTER 2024-02-12 15:54 | Outpatient (CLI) | payer MEDICARE, BC, OTHER ==
--- NOTE | 2024-02-13 16:59 | MRI Report ---
PROCEDURE: Brain WO INDICATIONS: MEMORY LOSS TECHNIQUE: Noncontrast axial T1 spin echo, axial T2 fast spin echo, sagittal and axial FLAIR, coronal T2 fast sp in echo, axial gradient echo, axial diffusion and ADC through the brain. COMPARISON: None. FINDINGS: Image quality: Excellent. CSF Spaces: Basal cisterns are patent. No extra-axial fluid collections. Ventricles are normal in size and shape. Brain: No intracranial masses or hemorrhage. Walker/white matter interface is normal. There is mild a ge-appropriate global volume loss and chronic microvascular ischemic changes. Brainstem appears radhika l. Diffusion-weighted images demonstrate no acute ischemic insult. No chronic ischemic insults. No rmal intravascular flow voids are present. Skull and face: Calvarium has normal marrow signal. Orbits appear normal. Sinuses: Sinuses and mastoids are clear. IMPRESSION: Mild age-appropriate global volume loss and chronic microvascular ischemic changes. No acute intracra nial abnormalities. Reviewed by: Italo Yan MD on 02/13/2024 4:58 PM PDT Approved by: Italo Yan MD on 02/13/2024 4:58 PM PDT Station ID: [id number]
== END 2024-02-12 15:55 | disposition home or self-care (01) ==
LOC: DI 15:54
PROVIDERS: ATTEND Physician Assistant
DX: R41.3 Other amnesia (principal); C61 Malignant neoplasm of prostate

== ENCOUNTER 2024-02-18 09:57 | Outpatient (CLI) | payer MEDICARE, BC, OTHER ==
--- NOTE | 2024-02-18 13:27 | MRI Report ---
PROCEDURE: Cervical Spine WO INDICATIONS: CERVICAL STENOSIS TECHNIQUE: Noncontrast sagittal T1 spin echo and T2 fast spin echo, sagittal STIR, foraminal oblique sagittal T2 fast spin echo, and axial gradient echo or T2 fast spin echo through the cervical spine. COMPARISON: 07/29/2022 cervical spine MRI FINDINGS: Image quality: Excellent. Alignment and Curvature: There is loss of normal cervical lordosis. 4 mm of anterolisthesis of C2 on C3. 4 mm of retrolisthesis of C4 on C5. 2 mm of anterolisthesis of C3 on C4. 3 mm of retrolisthesis of C5 on C6. 3 mm of anterolisthesis of C7 on T1. 3 mm of retrolisthesis of T1 on T2. 4 mm of anterol isthesis of T2 on T3.. Bone Marrow: Marrow demonstrates normal overall signal. Moderate reactive signal within the end plat es adjacent to the C4-C5 and T1-T2 intervertebral discs. Mild reactive signal adjacent to the remaini ng cervical and upper thoracic intervertebral discs. Spinal Cord: Visualized spinal cord has normal size and signal. No cerebellar tonsillar herniation. Paraspinous Soft Tissues: Incompletely visualized left thyroid mass is present as before, measuring a t least 45 mm diameter. Prevertebral soft tissues are normal in thickness. C2-C3: Moderate disc height loss and desiccation. Mild diffuse disc bulge. Congenital canal stenosis . Moderate facet and uncovertebral hypertrophy bilaterally. Severe canal stenosis. Mild cord flatteni ng. Severe bilateral foraminal stenosis with bilateral C6 nerve root compression. No significant rouse ge. C3-C4: Moderate disc height loss and desiccation. Moderate diffuse disc bulge. Moderate facet and u ncovertebral hypertrophy bilaterally. Congenital canal stenosis. Moderate to severe canal stenosis. M ild cord flattening. Severe bilateral foraminal stenosis with bilateral C4 nerve root compression. No significant change. C4-C5: Severe disc height loss and desiccation. Moderate diffuse disc bulge/osteophyte. Congenital c anal stenosis. Moderate facet and uncovertebral hypertrophy bilaterally. Moderate to severe canal brennan nosis. Minimal anterior cord flattening. Severe bilateral foraminal stenosis with bilateral C5 nerve root compression. No significant change. C5-C6: Severe disc height loss and desiccation. Moderate diffuse disc bulge. Congenital canal stenos is. Moderate facet and uncovertebral hypertrophy bilaterally. Moderate to severe canal stenosis. Mini mal anterior cord flattening. Severe bilateral foraminal stenosis with bilateral C6 nerve root compre ssion. No significant change. C6-C7: Moderate disc height loss and desiccation. Moderate diffuse disc bulge. Congenital canal sten osis. Moderate facet and uncovertebral hypertrophy bilaterally. Moderate canal stenosis. Severe bilat eral foraminal stenosis with bilateral C7 nerve root compression. No significant change. C7-T1: Severe disc height loss and desiccation. Mild diffuse disc bulge. Mild facet and uncovertebra l hypertrophy bilaterally. Moderate canal stenosis. Moderate left and mild right foraminal stenosis. No significant change. IMPRESSION: 1. Diffuse congenital canal stenosis with superimposed disc and facet disease, as well as uncovertebr al hypertrophy. 2. Multilevel canal stenoses, worst at C2-C3, C3-C4, C4-C5, and C5-C6, where there is mild cord radha ening. 3. Multilevel intraforaminal nerve root compression as described above. Recommend correlation with cl inical symptoms to ascertain relevance of these findings. 4. Left thyroid mass. Reviewed by: Debbie Hunt MD on 02/18/2024 1:26 PM PDT Approved by: Debbie Hunt MD on 02/18/2024 1:26 PM PDT Station ID: [id number]
--- NOTE | 2024-02-18 14:07 | MRI Report ---
PROCEDURE: Thoracic Spine WO INDICATIONS: THORACIC BACK PAIN TECHNIQUE: Noncontrast sagittal T1 spine echo and T2 fast spin echo, sagittal STIR, axial T1 and T2 fast spin ec ho through the thoracic spine. COMPARISON: None. FINDINGS: Image quality: Limited by technical factors. Assessment of cord signal is limited. Alignment and Curvature: Grade 1 anterolisthesis of T2 on T3. Mild diffuse thoracic kyphosis. Bone Marrow: Marrow is of normal overall signal. No acute vertebral body compression fractures. Spinal Cord: Visualized spinal cord is normal in size. There is possible mild T2 signal elevation wi thin the cord at the T2-T3 and T3-T4 disc space levels. Paraspinous Soft Tissues: Incompletely visualized left thyroid mass measuring at least 45 mm diameter . Disc space levels:: Disc desiccation throughout the thoracic spine with multilevel disc bulges At T1-T2, there is mild diffuse disc bulge, causing moderate canal stenosis. At T2-T3, there is mild diffuse disc bulge, causing moderate canal stenosis with minimal anterior cor d flattening. At T4-T5 there is mild diffuse disc bulge with superimposed right paracentral protrusion, causing mod erate canal stenosis with mild right cord flattening. At T8-T9, there is mild diffuse disc bulge with superimposed right paracentral protrusion, causing mi ld canal stenosis with minimal right cord flattening. IMPRESSION: 1. Multilevel degenerative disc disease. 2. Multilevel canal stenoses with associated cord flattening at T2-T3, T4-T5, and T8-T9. 3. Possible increased cord signal within the cord as described above, consistent with cord injury/gli osis. 4. Left thyroid mass. Reviewed by: Debbie Hunt MD on 02/18/2024 2:06 PM PDT Approved by: Debbie Hunt MD on 02/18/2024 2:06 PM PDT Station ID: [id number]
--- NOTE | 2024-02-18 14:29 | MRI Report ---
PROCEDURE: Lumbar Spine WO INDICATIONS: BACK PAIN TECHNIQUE: Noncontrast sagittal T1 spin echo and T2 fast echo, sagittal STIR, coronal T2, axial T1 and T2 fast s pin echo through the lumbar spine. COMPARISON: MRI dated 07/29/2022 FINDINGS: Image quality: Excellent. Alignment and Curvature: No plain films are available for comparison. Thus, for numbering purposes, 5 lumbar type vertebral bodies will be presumed for the current report. This should be confirmed with plain film correlation prior to any lumbar spinal intervention. Loss of normal lumbar lordosis is pr esent. 4 mm of retrolisthesis of L1 on L2. 3 mm of retrolisthesis of L2 on L3 and L3 on L4. 10 mm of anterolisthesis of L4 on L5. 6 mm of retrolisthesis of L5 on S1. Bone Marrow: Marrow is of normal overall signal. No acute vertebral body compression fractures. Bi lateral L4-L5 pars intraarticularis defects are present. There is moderate reactive signal within the endplates adjacent to the L1-L2, L2-L3, L3-L4, and L5-S1 intervertebral discs. Mild reactive signal within the remaining lumbar and lower thoracic endplates. There appears to be ankylosis at L4-L5. Spinal Cord: Conus medullaris terminates at the mid L1 level. Visualized cord demonstrates normal s ignal and size. Paraspinous Soft Tissues: No paravertebral masses. T12-L1: Moderate disc height loss and desiccation. Mild diffuse disc bulge with superimposed right p osterolateral protrusion. Mild bilateral facet hypertrophy. Mild epidural lipomatosis. Mild canal brennan nosis. Severe right and mild left foraminal stenosis. Right T12 nerve root compression, new since the prior examination. L1-L2: Severe disc height loss and desiccation. Mild diffuse disc bulge . Mild facet and ligament flavum hypertrophy. Mild epidural lipomatosis. Increased, severe canal stenosis. Increased, severe le ft and moderate right foraminal stenosis. There is new left L1 nerve root compression. L2-L3: Severe disc height loss and desiccation. Moderate diffuse disc bulge/osteophyte. Mild facet and ligament flavum hypertrophy. Mild epidural lipomatosis. Severe canal stenosis. Moderate right an d severe left foraminal stenosis with left L2 nerve root compression. No significant change. L3-L4: Severe disc height loss and desiccation. Moderate diffuse disc bulge/osteophyte. Mild facet and ligament flavum hypertrophy. Mild epidural lipomatosis. Moderate canal stenosis. Severe right and moderate left foraminal stenosis. Right L3 nerve root compression. No significant change. L4-L5: Ankylosis. Mild residual disc bulge. Moderate epidural lipomatosis. Mild bilateral facet hyp ertrophy. Moderate canal stenosis. Moderate to severe bilateral foraminal stenosis with mild L4 nerve root compression. No significant change . L5-S1: Severe disc height loss and desiccation. Moderate diffuse disc bulge/osteophyte. Mild bilate ral facet hypertrophy. Mild canal stenosis. Moderate to severe bilateral foraminal stenosis. Bilatera l L5 nerve root compression. No significant change. IMPRESSION: 1. Multilevel degenerative disc and facet disease, in addition to epidural lipomatosis and ligamentum flavum hypertrophy. 2. Multilevel canal stenoses, worst at L1-L2 where there is increased, severe canal stenosis. 3. Multilevel foraminal stenoses with intraforaminal nerve root compression throughout as described a oz. Recommend correlation with clinical symptoms to ascertain relevance of these findings. 4. Grade 1 isthmic spondylolisthesis at L4-L5. 5. Five lumbar type vertebral bodies were presumed for the purposes of the current report. Correlati on with plainfilms for numbering purposes is recommended prior to any lumbar spinal intervention. Reviewed by: Debbie Baxter MD on 02/18/2024 2:27 PM PDT Approved by: Debbie Baxter MD on 02/18/2024 2:27 PM PDT Station ID: [id number]
== END 2024-02-18 09:58 | disposition home or self-care (01) ==
LOC: DI 09:57
PROVIDERS: ATTEND Neurological Surgery
DX: M48.02 Spinal stenosis, cervical region (principal); M47.816 Spondylosis without myelopathy or radiculopathy, lumbar region; M47.817 Spondylosis without myelopathy or radiculopathy, lumbosacral region; M51.36 Other intervertebral disc degeneration, lumbar region; M48.061 Spinal stenosis, lumbar region without neurogenic claudication; M51.37 Other intervertebral disc degeneration, lumbosacral region; M48.07 Spinal stenosis, lumbosacral region; M43.16 Spondylolisthesis, lumbar region; M51.34 Other intervertebral disc degeneration, thoracic region; M48.04 Spinal stenosis, thoracic region; E07.89 Other specified disorders of thyroid; M47.22 Other spondylosis with radiculopathy, cervical region; M50.11 Cervical disc disorder with radiculopathy, high cervical region

== ENCOUNTER 2024-03-18 09:08 | Outpatient (CLI) | payer MEDICARE, BC, OTHER ==
--- NOTE | 2024-03-18 09:51 | Sleep Patient Instructions ---
Sleep Center Visit Summary - Patient Visit Information Reason for Visit: 6-month follow-up for Pap therapy - Patient Instructions Additional Instructions: You were here for follow up of CPAP therapy. You will be continued on CPAP therapy with pressure at 4-9 cmH2O. Please let us know if the pressure change is uncomfortable and we can make further adjustments of the pressure. You should follow up with sleep care in 12 months. You may contact us sooner for any questions or concerns. - Clinic Information Contact: formerly [facility] [address] [place] [address] [email or web address] T: [phone]
--- NOTE | 2024-03-18 09:55 | SLEEP CARE CONSULTATION ---
Information from patient questionnaire entered by Alec Claudio. I have reviewed and concur with the information entered by Alec Claudio. This document represents the service I personally performed and the decisions made by , Erin Christie ARNP. History of Present Illness Service Date and Time: 03/18/2024 0908 Previous diagnosis: Severe, Obstructive Sleep Apnea-Hypopnea Syndrome AHI: 41.2 (2022) Reason for follow up: six month Equipment type: CPAP (ResMed 11; s/u 01/2023) Equipment obtained from: Other ([facility]; getting supplies) Mask style: Nasal pillows (Fazal II) Backup mask available: Yes (old mask) Last cushion change: just replaced Prior sleep studies: No Type of Sleep Study: Polysomnography (COMPLETED 01/12/23) HPI additional information: FANI SALAZAR was diagnosed to have severe, AHI 41.2, obstructive sleep apnea- hypopnea syndrome and returned today for CPAP therapy six month follow-up. Sleep Study - Results Type of Sleep Study: Polysomnography (COMPLETED 01/12/23) Prior sleep studies: No CPAP Compliance Data - Data Reviewed with Patient Average duration of nightly device use: 8 h 21 mins Compliance rate %: 97 (176/180 days used; 09/19/23-03/16/24) Current pressure setting (cmH2O): 4-8 (avg 7.5, max 7.9) Average residual AHI: 7.2 Central apnea: 3.5 Obstructive apnea: 3.2 Hypopnea: 0.3 Average large leak: 1.3 L/min Subjective Patient concerns: reports: air blowing in eyes (On occasion), mask leak noise (On occasion). denies: aerophagia, mask discomfort, condensation in mask/hose, nasal congestion, dry mouth, nose, throat, epistaxis Observed to snore while using device: No Current pressure setting perceived as: comfortable On therapy, patient: reports: sleeping better, awakening more refreshed, being more awake and alert during the day, more rested overall. denies: drowsiness while driving Initial [place] Sleepiness Scale score: 7 (09/25/22) Current [place] Sleepiness Scale score: 5 (03/18/24) Allergies and Home Medications Known drug allergies: No Drug allergies reviewed: Yes Home medication list reviewed: Yes (no changes) Allergy and home medication list: Allergies No Known Drug Allergies Allergy Review of Systems Review of systems same as previous: No (left knee pain, lower back, prostate cancer) Physical Exam Vital signs obtained and entered by: Erin Li NP Blood Pressure: 132/63 Cuff size: long (left arm) Heart Rate: 70 O2 Saturation: 96 Height: 5 ft 8 in Weight: 196 lb 6.4 oz Weight change since last visit: 6 lb loss Body Mass Index: 29.8 BMI Classification: Overweight Impression and Plan 1. Obstructive Sleep Apnea-Hypopnea Syndrome, severe, with good treatment compliance and fair apnea control with elevated residual AHI. On CPAP therapy, the patient has better sleep quality and is more rested overall. Patient has significant improvement of his sleep apnea although current pressure is slightly ineffective. He is comfortable with pressure and feels improvement with using the CPAP therapy. The patients pressure will be changed to autoCPAP 4-9 cmH20 for elevation of residual AHI. Patient advised to contact me if pressure change is uncomfortable so that it can be adjusted. Goals for apnea control discussed. Patient's apnea severity and rationale for treatment to reduce apnea, improve sleep quality and reduce cardiovascular and cerebrovascular events was reviewed. I also reviewed the benefit of consistent device use of CPAP for emphysema, gastric reflux. 2. Overweight, unspecified. Currently patients BMI is 29.8. Obesity increases the risk of apnea, CPAP pressure requirements and overall health risks especially cardiovascular and diabetes. Thus patient is advised to continue to try to lose weight. * Change auto CPAP pressure to 4-9 cmH2O * Notify me if snoring with mask or feeling that the pressure is too much or too little * Attempt to lose weight * Call this office if any problems using CPAP * Return for follow up in 12 months, or sooner if concerns arise Adjust device pressure to (cmH2O): 4-9 Counseling Topics: Spare mask, Weight loss health impact Follow up with Sleep Care in: 1 year Visit Type: In Office Time Spent with Patient (minutes): 26 Provider Statement: I spent 100% of the Face to Face Visit with the patient with greater than 50% spent counseling the patient and coordination of care.
[2024-03-18 10:02] VITALS: BP 132/63; O2SAT 96
== END 2024-03-18 09:09 | disposition home or self-care (01) ==
LOC: SC 09:08
PROVIDERS: ATTEND Nurse Practitioner Family
DX: G47.33 Obstructive sleep apnea (adult) (pediatric) (principal); E66.3 Overweight; Z68.29 Body mass index [BMI] 29.0-29.9, adult
CPT/HCPCS: 99213; G0463; 99212